=== PATIENT | female | born 1990 | race Hispanic/Latino ===

== ENCOUNTER 2024-05-20 16:58 | Emergency (ER) | payer SELFPAY ==
--- OUTSIDE RECORDS SUMMARY | 2024-05-20 17:02 | XMS REPORT | Continuity of Care Document ---
Author Name Unknown Address [address] [facility]. [address] [place] [address] [facility] Address [address] [facility] [place] [address] Care Team Providers Care Auctioneer Art Name Role Phone Helena Bailey Primary Care Physician LIANE GRAJEDA Attending Clinician Unavail able Taras Liane AGRAWAL Attending Clinician + Doctor Unassigned, Webber Attending Clinician U CHER Yates Attending Clinician Unavaildonnie burris [facility] Attending Clinician Unavailable Cher Milian CNM Attending Clinician [phone] Nino Jimenez MD Attending Clinician [phone] BERONICA COTTER Attending Clinician Unavailable Pgy1 Attending Clinician Unavailable Beronica Cotter MD Attending Clinician [phone] SAMMIE MANZANO Attending Clinician UnavailSAMMIE Bruce Attending Clinician Unavailregino e Pgy3 Attending Clinician Unavailable Gyn1, Lvc-Vwsev-6xi Yr Res Attending Clinician U ALFIE Mendoza Attending Clinician Unavailable Alfie Soliman MD Attending Clinician [phone] Andreina Liu Attending Clinician UnaSammie Gleason Attending Clinician [phone] SAMMIE MOLINA Attending Clinician UnavailANDREINA Person Attending Clinician UnavailKELLY Gonzales Attending Clinician Unavailable ALFIE SOLIMAN Admitting Clinician Unavailable Alfie Soliman MD Admitting Clinician Payers Payer Name Policy Type Policy Number Effective Date Expirati on Date Source [id number] 2019 00:00:00 Problems Condition Name Condition Details Condition Category Status Onset Date Resolution Date Last Treatment Date Treating Clinician Comments Source Well woman exam Well woman exam Disease Active 2022-06 0-11 00:00: 00 [facility] Pelvic inflammato ry disease Pelvic inflammato ry disease Disease Active 3-25 00:00: 00 [facility] Other general counseling and advice for contracept celine management Other general counseling and advice for contracept celine management Disease Active 2021-06 0-11 00:00: 00 [facility] Pain pelvic Pain pelvic Disease Active 2021-06 0-11 00:00: 00 [facility] Breakthrou gh bleeding with IUD Breakthrou gh bleeding with IUD Disease Active 8-31 00:00: 00 [facility] IUD (intrauter ine device) in place IUD (intrauter ine device) in place Disease Active 6-04 00:00: 00 [facility] Over weight Over weight Disease Active 6-04 00:00: 00 [facility] IUD (intrauter ine device) in place IUD (intrauter ine device) in place Disease Active 6-04 00:00: 00 [facility] Class 1 obesity with body mass index (BMI) of 30.0 to 30.9 in adult, unspecifie d obesity type, unspecifie d whether serious comorbidit y present Class 1 obesity with body mass index (BMI) of 30.0 to 30.9 in adult, unspecifie d obesity type, unspecifie d whether serious comorbidit y present Disease Active 6-04 00:00: 00 [facility] BMI 31.0-31.9, adult BMI 31.0-31.9, adult Disease Active 11-11 00:00: 00 [facility] 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 ICD10 Diagnosis Term Bridge Builder Utility [facility] Allergies, Adverse Reactions, Alerts Allergy Name Allergy Type Status Severity Reaction(s) Onset Date Inactive Date Treating Clinician Comments Source [place] - Intraven ous Propensi ty to adverse reaction to drug Active 12-07 00:00: 00 Cain Snow NO KNOWN ALLERGIE S Drug Class Active [facility] Social History Social Habit Start Date Stop Date Quantity Comments Source History SDOH Social Connections Get Together [facility] History SDOH Social Connections Voodoo [facility] History SDOH Social Connections Membership [facility] History SDOH Social Connections Meetings [facility] intake 2023-03-20 00:00:00 2023-03-20 00:00:00 Current drinker of alcohol (finding) [facility] Exposure to SARS-CoV-2 (event) 2022-10-28 00:00:00 2022-11-07 13:49:00 Not sure [facility] History SDOH Social Connections Phone 2022-09-03 00:00:00 2022-09-03 00:00:00 5 [facility] History SDOH Social Connections Living 2022-09-03 00:00:00 2022-09-03 00:00:00 7 [facility] History SDOH Physical Activity DPW 2022-09-03 00:00:00 2022-09-03 00:00:00 7 [facility] History SDOH Physical Activity MPS 2022-09-03 00:00:00 2022-09-03 00:00:00 2 [facility] History SDOH Financial 2022-09-03 00:00:00 2022-09-03 00:00:00 3 [facility] History SDOH Food Worry 2022-09-03 00:00:00 2022-09-03 00:00:00 1 [facility] History SDOH Food Scarcity 2022-09-03 00:00:00 2022-09-03 00:00:00 1 [facility] History SDOH Transport Med 2022-09-03 00:00:00 2022-09-03 00:00:00 2 [facility] History SDOH Transport Non-Med 2022-09-03 00:00:00 2022-09-03 00:00:00 2 [facility] History SDOH Housing Unable to Pay 2022-09-03 00:00:00 2022-09-03 00:00:00 2 [facility] History SDOH Housing Places Lived 2022-09-03 00:00:00 2022-09-03 00:00:00 1 [facility] History SDOH Housing Homeless Last Year 2022-09-03 00:00:00 2022-09-03 00:00:00 2 [facility] History SDOH Alcohol Std Drinks 2022-09-03 00:00:00 2022-09-03 00:00:00 3 [facility] History SDOH Alcohol Binge 2022-09-03 00:00:00 2022-09-03 00:00:00 4 [facility] Alcohol Comment 2022-03-20 00:00:00 2022-03-20 00:00:00 occasionally [facility] Tobacco use and exposure 2022-03-20 00:00:00 2022-03-20 00:00:00 Smokeless tobacco non-user [facility] History of Social function 2022-03-20 00:00:00 2022-03-20 00:00:00 [facility] History SDOH Alcohol Frequency 2019-11-12 00:00:00 2019-11-12 00:00:00 2 [facility] Sex Assigned At 1990 00:00:00 1990 00:00:00 [facility] Smoking Status Start Date Stop Date Source Never smoked tobacco [facility] Medications Ordered Medication Name Filled Medication Name Start Date Stop Date Current Medication? Ordering Clinician Indication Dosage Frequency Signature (SIG) Comments Components Source Tylenol Extra Strength 500 mg tablet 2023-06 2-05 00:00: 00 Yes 12mg Cain Snow clindamycin HCl 150 mg capsule 2023-06 2-05 00:00: 00 Yes 1mg Cain Snow nitrofurant oin monohydrate /macrocryst als 100 mg capsule 2023-06 0-15 00:00: 00 Yes 1mg Cain Snow TAKE 1 CAPSULE TWICE DAILY. 2-06 00:00: 00 09-09 00:00 :00 No 100 Cain Snow TAKE 1 CAPSULE TWICE DAILY. 2022-06 1-20 00:00: 00 09-09 00:00 :00 No 100 Cain Snow APPLY SPARINGLY TO AFFECTED AREA(S) TWICE DAILY 2022-06 0-12 00:00: 00 09-09 00:00 :00 No 1 Cain Snow TAKE 1 TABLET DAILY. 2022-06 0-12 00:00: 00 09-09 00:00 :00 No 10 Cain Snow TAKE 1 TABLET AT BEDTIME. 2022-06 012 00:00: 00 09-09 00:00 :00 No 10 Cain Snow APPLY CREAM TOPICALLY TO AFFECTED AREA THREE TIMES DAILY 2022-06 0-11 00:00: 00 Yes Cain Snow triamcinolo ne 0.5 % cream 2022-06 011 00:00: 00 Yes [id number] Apply to area(s) 3 (three) times daily. [facility] TAKE 1 CAPSULE TWICE DAILY. 31 00:00: 00 09-09 00:00 :00 No 100 Cain Snow TAKE 1 CAPSULE TWICE DAILY. 01-03 00:00: 00 09-09 00:00 :00 No 100 Cain Snow TAKE 1-2 CAPSULES ONCE A DAY PRN ANXIETY AND SLEEP 7- 00:00: 00 09-09 00:00 :00 No 25 Cain Snow TAKE 1 CAPSULE TWICE DAILY. 6-25 00:00: 00 09-09 00:00 :00 No 100 Cain Snow TAKE 1 TABLET DAILY. 6-13 00:00: 00 09-09 00:00 :00 No 1 Cain Snow TAKE 1 TABLET DAILY. 11-15 00:00: 00 09-09 00:00 :00 No 1 Cain Snow TAKE 1 TABLET TWICE DAILY UNTIL GONE. 11-15 00:00: 00 09-09 00:00 :00 No 500 Cain Snow TAKE 1 CAPSULE TWICE DAILY. 11-15 00:00: 00 09-09 00:00 :00 No 100 Cain Snow TAKE 1 TABLET DAILY. 11-15 00:00: 00 09-09 00:00 :00 No 500 Cain Snow INHALE 2 PUFFS TWICE DAILY. 11-15 00:00: 00 09-09 00:00 :00 No 110 Cain Snow TAKE 1 TABLET BY MOUTH ONCE DAILY FOR 7 DAYS 10-21 00:00: 00 Yes Cain Snow levoFLOXaci n 500 mg tablet 10-21 00:00: 00 10-29 04:59 :00 No [id number] 500mg Take 1 tablet by mouth every 24 (twenty-fo ur) hours for 7 days. [facility] levonorgest reL (LILETTA) IUD 1 Device 10-11 21:15: 00 10-11 20:00 :00 No [id number] 1{devic e} [facility] doxycycline hyclate 100 mg tablet 10-11 00:00: 00 03-20 00:00 :00 No [id number] 100mg Take 1 tablet by mouth in the morning and 1 tablet in the evening. [facility] doxycycline hyclate (Vibramycin ) capsule 100 mg 09-03 18:00: 00 09-15 17:59 :00 No 100mg 100 mg, Oral, Q12H ABX, 24 doses, First dose on 09/03/22 at 1300, Last dose on 09/15/22 at 0100, DOUGLAS
Re ason for Anti-Infec tive: Empiric Therapy for Suspected Infection< br>Empiric Therapy Site: Pelvic
Duration of therapy: 5 days [facility] metroNIDAZO LE (FLAGYL) tablet 500 mg 09-03 15:45: 00 09-15 15:44 :00 No 500mg 500 mg, Oral, Q12H ABX, 24 doses, First dose on Sat09/03/22 at 1045, Last dose on Sat09/14/22 at 2245, Routine
Reason for Anti-Infec tive: Empiric Therapy for Suspected Infection< br>Empiric Therapy Site: Pelvic
Duration of therapy: 5 days [facility] norgestimat e-ethinyl estradioL (VYLIBRA) 0.25-35 mg-mcg per tablet 1 tablet 09-03 14:00: 00 Yes 1{tbl} 1 tablet, Oral, DAILY, First dose on Sat09/03/22 at 0900, Until Discontinu ed, Routine
member services coordinator approving Restricted medication : ALFIE SOLIMAN [facility] ibuprofen 600 mg tablet 09-03 00:00: 00 03-20 00:00 :00 No [id number] 600mg Take 1 tablet by mouth every 6 (six) hours as needed for Pain (scale 1-3) for up to 30 doses. [facility] norgestimat e-ethinyl estradioL 0.25-35 mg-mcg per tablet 09-03 00:00: 00 03-20 00:00 :00 No [id number] 1{tbl} Take 1 tablet by mouth in the morning. [facility] doxycycline hyclate 100 mg capsule 09-03 00:00: 00 09-16 04:59 :00 No [id number] 100mg Take 1 capsule by mouth every 12 (twelve) hours for 12 days. [facility] metroNIDAZO LE 500 mg tablet 09-03 00:00: 00 09-16 04:59 :00 No [id number] 500mg Take 1 tablet by mouth every 12 (twelve) hours for 12 days. [facility] simethicone (GAS RELIEF (SIMETHICON E)) chewable tablet 160 mg 09-02 14:00: 00 Yes 160mg 160 mg, Oral, PC+HS, First dose on 09/02/22 at 0900, Until Discontinu ed, Routine [facility] docusate (COLACE) capsule 100 mg 09-02 13:00: 00 Yes 100mg 100 mg, Oral, Q12H, First dose on 09/02/22 at 0800, Until Discontinu ed, Routine [facility] metroNIDAZO LE in NaCl (iso-os) (FLAGYL I.V.) RTU IV infusion 500 mg 09-02 03:45: 00 09-03 11:36 :30 No 500mg 500 mg, IV Infusion, Q12H ABX, 14 doses, First dose on 09/01/22 at 2245, Last dose on 09/08/22 at 1045, Administer over 60 Minutes, 100 mL
Reas on for Anti-Infec tive: Documented Infection< br>Documen andree Infection Site: Pelvic
Duration of Therapy: 7 days [facility] doxycycline (VIBRAMYCIN ) 100 mg in NaCl 0.9% (NS) 100 mL MINI-BAG 09-02 03:45: 00 09-03 11:36 :30 No 100mg 100 mg, IV Piggyback, Q12H ABX, 14 doses, First dose on 09/01/22 at 2245, Last dose on 09/08/22 at 1045, Administer over 60 Minutes, 100 mL
Reas on for Anti-Infec tive: Documented Infection< br>Documen andree Infection Site: Pelvic
Duration of Therapy: 7 days [facility] cefOXitin (MEFOXIN) 2 g in NaCl 0.9% (NS) 100 mL MINI-BAG 09-02 03:45: 00 09-03 11:36 :30 No 2g 2 g, IV Piggyback, Q6H ABX, 12 doses, First dose on 09/01/22 at 2245, Last dose on 09/04/22 at 1645, Administer over 30 Minutes, 100 mL
Reas on for Anti-Infec tive: Documented Infection& lt;br>Docu mented Infection Site: Pelvic
Duration of Therapy: Other (see Comments) [facility] ibuprofen (IBU) tablet 600 mg 09-02 02:28: 54 Yes 600mg 600 mg, Oral, Q6HPRN, Starting on 09/01/22 at 2127, Until Discontinu ed, Routine, Pain (scale 1-3) [facility] ondansetron (ZOFRAN (PF)) injection 4 mg 09-02 02:28: 39 Yes 4mg 4 mg, Slow IV Push, Q4HPRN, Starting on 09/01/22 at 2127, Until Discontinu ed, Routine, Nausea and Vomiting (N/V) [facility] Dose Unknown 2021-06 117 00:00: 00 Yes Cain Snow No known medications 2021-06 011 08:45: 55 No No known medication s [facility] TAKE 1 TABLET TWICE DAILY. 12-19 00:00: 00 Yes [id number] Cain Snow Dose Unknown 7-04 00:00: 00 Yes Cain Snow Dose Unknown 7- 00:00: 00 Yes Cain Snow Dose Unknown 6-30 00:00: 00 Yes Cain Snow Dose Unknown 4-21 00:00: 00 Yes Cain Snow Dose Unknown 4-02 00:00: 00 Yes Cain Snow Dose Unknown 4-01 00:00: 00 Yes Cain Snow Macrobid 100 mg capsule - 00:00: 00 Yes 1mg Cain Snow Dose Unknown 3-28 00:00: 00 Yes Cain Snow No known medications 8-31 08:50: 15 No No known medication s [facility] cefdinir 300 mg capsule - 00:00: 00 Yes 1mg Cain Snow Augmentin 875 mg-125 mg tablet 7- 00:00: 00 Yes 1mg Cain Snow amoxicillin 500 mg tablet 6-05 00:00: 00 Yes 1mg Cain Snow No known medications No [facility] No known medications No [facility] Immunizations Ordered Immunization Name Filled Immunization Name Date Status Comments Source SARS-COV-2 COVID-19 PFIZER VACCINE 2020-10-08 00:00:00 Completed [facility] SARS-COV-2 COVID-19 PFIZER VACCINE 2020-10-08 00:00:00 Completed [facility] SARS-COV-2 COVID-19 PFIZER VACCINE 2020-10-08 00:00:00 Completed [facility] SARS-COV-2 COVID-19 PFIZER VACCINE 2020-10-08 00:00:00 Completed [facility] SARS-COV-2 COVID-19 PFIZER VACCINE 2020-10-08 00:00:00 Completed [facility] SARS-COV-2 COVID-19 PFIZER VACCINE 2020-10-08 00:00:00 Completed [facility] SARS-COV-2 COVID-19 PFIZER VACCINE 2020-10-08 00:00:00 Completed [facility] SARS-COV-2 COVID-19 PFIZER VACCINE 2020-10-08 00:00:00 Completed [facility] SARS-COV-2 COVID-19 PFIZER VACCINE 2020-10-08 00:00:00 Completed [facility] SARS-COV-2 COVID-19 PFIZER VACCINE 2020-10-08 00:00:00 Completed [facility] SARS-COV-2 COVID-19 PFIZER VACCINE 2020-10-08 00:00:00 Completed [facility] SARS-COV-2 COVID-19 PFIZER VACCINE 2020-10-08 00:00:00 Completed [facility] SARS-COV-2 COVID-19 PFIZER VACCINE 2020-10-08 00:00:00 Completed [facility] SARS-COV-2 COVID-19 PFIZER VACCINE 2020-10-08 00:00:00 Completed [facility] SARS-COV-2 COVID-19 PFIZER VACCINE 2020-09-17 00:00:00 Completed [facility] SARS-COV-2 COVID-19 PFIZER VACCINE 2020-09-17 00:00:00 Completed [facility] SARS-COV-2 COVID-19 PFIZER VACCINE 2020-09-17 00:00:00 Completed [facility] SARS-COV-2 COVID-19 PFIZER VACCINE 2020-09-17 00:00:00 Completed [facility] SARS-COV-2 COVID-19 PFIZER VACCINE 2020-09-17 00:00:00 Completed [facility] SARS-COV-2 COVID-19 PFIZER VACCINE 2020-09-17 00:00:00 Completed [facility] SARS-COV-2 COVID-19 PFIZER VACCINE 2020-09-17 00:00:00 Completed [facility] SARS-COV-2 COVID-19 PFIZER VACCINE 2020-09-17 00:00:00 Completed [facility] SARS-COV-2 COVID-19 PFIZER VACCINE 2020-09-17 00:00:00 Completed [facility] SARS-COV-2 COVID-19 PFIZER VACCINE 2020-09-17 00:00:00 Completed [facility] SARS-COV-2 COVID-19 PFIZER VACCINE 2020-09-17 00:00:00 Completed [facility] SARS-COV-2 COVID-19 PFIZER VACCINE 2020-09-17 00:00:00 Completed [facility] SARS-COV-2 COVID-19 PFIZER VACCINE 2020-09-17 00:00:00 Completed [facility] SARS-COV-2 COVID-19 PFIZER VACCINE 2020-09-17 00:00:00 Completed [facility] SARS-COV-2 COVID-19 PFIZER VACCINE Unknown Completed [facility] SARS-COV-2 COVID-19 PFIZER VACCINE Unknown Completed [facility] Vital Signs Vital Name Observation Time Observation Value Comments S ource Systolic blood pressure 2023-03-20 13:29:00 114 mm[Hg] [facility] Diastolic blood pressure 2023-03-20 13:29:00 65 mm[Hg] [facility] Heart rate 2023-03-20 13:29:00 72 /min [facility] Body temperature 2023-03-20 13:29:00 36.28 Lexi [facility] Respiratory rate 2023-03-20 13:29:00 18 /min [facility] Body height 2023-03-20 13:29:00 157.5 cm [facility] Body weight 2023-03-20 13:29:00 [facility]31 [facility] 2023-03-20 13:29:00 27.95 kg/m2 [facility] Systolic blood pressure 2022-10-11 19:33:00 116 mm[Hg] [facility] Diastolic blood pressure 2022-10-11 19:33:00 72 mm[Hg] [facility] Heart rate 2022-10-11 19:33:00 60 /min [facility] Body temperature 2022-10-11 19:33:00 36.33 Lexi [facility] Respiratory rate 2022-10-11 19:33:00 16 /min [facility] Body height 2022-10-11 19:33:00 157.5 cm [facility] Body weight 2022-10-11 19:33:00 64.501 kg [facility] acute hospital BMI 2022-10-11 19:33:00 26.01 kg/m2 [facility] Systolic blood pressure 2022-09-13 18:38:00 132 mm[Hg] [facility] Diastolic blood pressure 2022-09-13 18:38:00 79 mm[Hg] [facility] Heart rate 2022-09-13 18:38:00 51 /min [facility] Body temperature 2022-09-13 18:38:00 36.56 Lexi [facility] Body height 2022-09-13 18:38:00 157.5 cm [facility] Body weight 2022-09-13 18:38:00 64.411 kg [facility] BMI 2022-09-13 18:38:00 25.97 kg/m2 [facility] Systolic blood pressure 2022-09-03 13:00:00 104 mm[Hg] [facility] Diastolic blood pressure 2022-09-03 13:00:00 68 mm[Hg] [facility] Heart rate 2022-09-03 13:00:00 67 /min [facility] Body temperature 2022-09-03 13:00:00 36.94 Lexi [facility] Respiratory rate 2022-09-03 13:00:00 16 /min [facility] Oxygen saturation in Arterial blood by Pulse oximetry 2022-09-03 13:00:00 98 /min [facility] Body height 2022-09-02 07:00:00 157.5 cm [facility] Body weight 2022-09-02 02:00:00 63.504 kg General acute hospital BMI 2022-09-02 02:00:00 25.61 kg/m2 [facility] Systolic blood pressure 2022-03-20 13:33:00 129 mm[Hg] [facility] Diastolic blood pressure 2022-03-20 13:33:00 81 mm[Hg] [facility] Heart rate 2022-03-20 13:33:00 58 /min [facility] Body temperature 2022-03-20 13:33:00 36.78 Lexi [facility] Respiratory rate 2022-03-20 13:33:00 16 /min [facility] Body height 2022-03-20 13:33:00 157.5 cm [facility] Body weight 2022-03-20 13:33:00 63.73 kg [facility] BMI 2022-03-20 13:33:00 25.70 kg/m2 [facility] Systolic blood pressure 2021-02-07 13:29:00 137 mm[Hg] [facility] Diastolic blood pressure 2021-02-07 13:29:00 79 mm[Hg] [facility] Heart rate 2021-02-07 13:29:00 61 /min [facility] Body temperature 2021-02-07 13:29:00 36.72 Lexi [facility] Respiratory rate 2021-02-07 13:29:00 18 /min [facility] Body height 2021-02-07 13:29:00 157.5 cm [facility] Body weight 2021-02-07 13:29:00 80.74 kg [facility] BMI 2021-02-07 13:29:00 32.56 kg/m2 [facility] acute hospital BP Systolic 2024-05-14 17:01:00 118 mm[Hg] Step [facility] BP Diastolic 2024-05-14 17:01:00 77 mm[Hg] Randy phen [facility] Weight Measured 2024-05-14 17:01:00 180.20 pounds Cain F Edy Height Measured 2024-05-14 17:01:00 62.00 inches Cain F [facility]y Body Temperature 2024-05-14 17:01:00 98.30 degrees Cain F Edy Heart Rate 2024-05-14 17:01:00 94.00 /min Lucy en [facility] Respiratory Rate 2024-05-14 17:01:00 Cain F Edy BP Systolic 2024-03-30 11:21:00 126 mm[Hg] Step [facility] BP Diastolic 2024-03-30 11:21:00 82 mm[Hg] Randy phen [facility] Weight Measured 2024-03-30 11:21:00 182.40 pounds Cain F Edy Height Measured 2024-03-30 11:21:00 62.00 inches Cain F Edy Body Temperature 2024-03-30 11:21:00 97.80 degrees Cain F Edy Heart Rate 2024-03-30 11:21:00 71.00 /min Lucy en [facility] Respiratory Rate 2024-03-30 11:21:00 18.00 /min Cain F Edy BP Systolic 2024-03-24 13:21:00 149 mm[Hg] Step [facility] BP Diastolic 2024-03-24 13:21:00 93 mm[Hg] Randy phen [facility] Weight Measured 2024-03-24 13:21:00 183.40 pounds Cain F Edy Height Measured 2024-03-24 13:21:00 62.00 inches Cain F Edy Body Temperature 2024-03-24 13:21:00 98.20 degrees Cain F Edy Heart Rate 2024-03-24 13:21:00 64.00 /min Lucy en [facility] Respiratory Rate 2024-03-24 13:21:00 18.00 /min Cain F Edy BP Systolic 2023-07-16 08:27:00 108 mm[Hg] Step [facility] BP Diastolic 2023-07-16 08:27:00 68 mm[Hg] Randy phen [facility] Weight Measured 2023-07-16 08:27:00 159.60 pounds Cain F Edy Height Measured 2023-07-16 08:27:00 62.00 inches Cain F Edy Body Temperature 2023-07-16 08:27:00 97.40 degrees Cain F Edy Heart Rate 2023-07-16 08:27:00 68.00 /min Lucy en [facility] Respiratory Rate 2023-07-16 08:27:00 18.00 /min Cain F Edy BP Systolic 2023-04-29 14:03:00 124 mm[Hg] Step [facility] BP Diastolic 2023-04-29 14:03:00 80 mm[Hg] Randy phen [facility] Weight Measured 2023-04-29 14:03:00 151.20 pounds Cain F Edy Height Measured 2023-04-29 14:03:00 62.00 inches Cain F Edy Body Temperature 2023-04-29 14:03:00 98.30 degrees Cain F Edy Heart Rate 2023-04-29 14:03:00 93.00 /min Lucy en [facility] Respiratory Rate 2023-04-29 14:03:00 Cain F Edy BP Systolic 2023-03-21 09:15:00 108 mm[Hg] Step [facility] BP Diastolic 2023-03-21 09:15:00 69 mm[Hg] Randy phen [facility]y Weight Measured 2023-03-21 09:15:00 152.20 pounds Cain F Edy Height Measured 2023-03-21 09:15:00 62.00 inches Cain F Edy Body Temperature 2023-03-21 09:15:00 97.50 degrees Cain F Edy Heart Rate 2023-03-21 09:15:00 76.00 /min Lucy en [facility] Respiratory Rate 2023-03-21 09:15:00 Cain F Edy BP Systolic 2023-01-03 14:36:00 126 mm[Hg] Step [facility] BP Diastolic 2023-01-03 14:36:00 77 mm[Hg] Randy phen F [facility]y Weight Measured 2023-01-03 14:36:00 150.20 pounds Cain F Edy Height Measured 2023-01-03 14:36:00 62.00 inches Cain F Edy Body Temperature 2023-01-03 14:36:00 97.50 degrees Cain F Edy Heart Rate 2023-01-03 14:36:00 65.00 /min Lucy en F [facility]y Respiratory Rate 2023-01-03 14:36:00 25.00 /min Cain F Edy BP Systolic 2022-11-27 13:02:00 104 mm[Hg] Step hen [facility] BP Diastolic 2022-11-27 13:02:00 66 mm[Hg] Randy phen F [facility]y Weight Measured 2022-11-27 13:02:00 143.40 pounds Cain F Edy Height Measured 2022-11-27 13:02:00 62.00 inches Cain F Edy Body Temperature 2022-11-27 13:02:00 98.20 degrees Cain F Edy Heart Rate 2022-11-27 13:02:00 58.00 /min Lucy en F Edy Respiratory Rate 2022-11-27 13:02:00 Cain F Edy BP Systolic 2022-11-15 14:35:00 116 mm[Hg] Step hen [facility] BP Diastolic 2022-11-15 14:35:00 75 mm[Hg] Randy phen F [facility]y Weight Measured 2022-11-15 14:35:00 145.60 pounds Cain F Edy Height Measured 2022-11-15 14:35:00 62.00 inches Cain F Edy Body Temperature 2022-11-15 14:35:00 98.00 degrees Cain F Edy Heart Rate 2022-11-15 14:35:00 56.00 /min Lucy en F Edy Respiratory Rate 2022-11-15 14:35:00 Cain F Edy BP Systolic 2022-11-12 13:06:00 129 mm[Hg] Step hen F Edy BP Diastolic 2022-11-12 13:06:00 81 mm[Hg] Randy phen F Edy Weight Measured 2022-11-12 13:06:00 146.80 pounds Cain F Edy Height Measured 2022-11-12 13:06:00 62.00 inches Cain F Edy Body Temperature 2022-11-12 13:06:00 97.80 degrees Cain F Edy Heart Rate 2022-11-12 13:06:00 52.00 /min Lucy en F Edy Respiratory Rate 2022-11-12 13:06:00 Cain F Edy BP Systolic 2022-10-30 14:16:00 118 mm[Hg] Step hen F Edy BP Diastolic 2022-10-30 14:16:00 74 mm[Hg] Randy phen F Edy Weight Measured 2022-10-30 14:16:00 145.00 pounds Cain F Edy Height Measured 2022-10-30 14:16:00 62.00 inches Cain F Edy Body Temperature 2022-10-30 14:16:00 98.50 degrees Cain F Edy Heart Rate 2022-10-30 14:16:00 61.00 /min Lucy en F Edy Respiratory Rate 2022-10-30 14:16:00 Cain F Edy BP Systolic 2022-04-26 14:40:00 117 mm[Hg] Step hen F Edy BP Diastolic 2022-04-26 14:40:00 78 mm[Hg] Randy phen F Edy Weight Measured 2022-04-26 14:40:00 138.00 pounds Cain F Edy Height Measured 2022-04-26 14:40:00 62.00 inches Cain F Edy Body Temperature 2022-04-26 14:40:00 97.90 degrees Cain F Edy Heart Rate 2022-04-26 14:40:00 63.00 /min Lucy en F Edy Respiratory Rate 2022-04-26 14:40:00 Cain Mak Snow Procedures Procedure Date / Time Performed Performing Clinician Source ASSIGNMENT OF BENEFITS 2023-03-20 13:09:36 Docto r Unassigned, Webber [facility] POCT TEST 2022-10-11 20:14:00 Beronica Cotter [facility] DISCLOSURE AND CONSENT, MEDICAL AND SURGICAL PROCEDURES 2022-10-11 05:01:00 Doctor Unassigned, Webber [facility] PATIENT FINANCIAL POLICY 2022-09-13 18:25:57 Doctor Unassigned, Webber [facility] COMP. METABOLIC PANEL (37799) 2022-09-03 13:48:00 Astrid Moctezuma [facility] CBC WITH DIFF 2022-09-03 13:48[facility] 2022-09-03 13:48:00 Alfie Soliman [facility] CBC WITH DIFF 2022-09-02 03:52:00 SorAngela matt [facility] URINALYSIS 2022-09-02 02:45:00 [facility] 2022-09-02 02:45:00 Angela Bolaños [facility] GC & CHLAMYDIA AMPLIFIED ASSAY 2022-09-02 02:11:00 SorAngela matt [facility] GC & CHLAMYDIA AMPLIFIED ASSAY 2022-03-20 14:21:00 Liane Grajeda [facility] TRICHOMONAS AMPLIFIED ASSAY 2022-03-20 14:21:00 Liane Grajeda [facility] PAP SMEAR-LIQUID BASED-CP 2022-03-20 14:21:00 Liane Grajeda [facility] HIV 1/2 AG-AB WITH REFLEX 2022-03-20 14:19:00 Liane Grajeda [facility] GALV ONLY - SYPHILIS IGG/IGM 2022-03-20 14:19:00 Liane Grajeda [facility] ASSIGNMENT OF BENEFITS 2022-03-20 13:06:49 Docto r Unassigned, Webber [facility] POCT TEST 2021-02-07 13:31:00 Sacha Molina [facility] Encounters Start Date/Time End Date/Time Encounter Type Admission Type Attending [facility] Care Facility Care Department Encounter ID Source 2024-05-14 16:57:32 2024-05-14 16:57:32 Outpatient [facility] [id number] Cain Snow 2024-05-14 00:00:00 2024-05-14 00:00:00 Outpatient Visit [facility] [id number] Cain Snow 2024-03-30 11:14:58 2024-03-30 11:14:58 Outpatient [facility] [id number] Cain Snow 2024-03-30 00:00:00 2024-03-30 00:00:00 Outpatient Visit [facility] [id number] Cain Snow 2024-03-24 00:00:00 2024-03-24 00:00:00 Outpatient Visit [facility] [id number] Cain Snow 2024-03-20 08:15:00 2024-03-20 08:15:00 Outpatient R LIANE GRAJEDA [facility] [id number] [facility] 2024-03-17 13:46:27 2024-03-17 13:46:27 Outpatient [facility] [id number] Cain Snow 2024-01-22 11:44:14 2024-01-22 11:44:14 Outpatient [facility] [id number] Cain Snow 2023-07-16 08:19:57 2023-07-16 08:19:57 Outpatient [facility] [id number] Cain Snow 2023-04-29 13:52:04 2023-04-29 13:52:04 Outpatient [facility] [id number] Cain Snow 2023-03-21 09:15:05 2023-03-21 09:15:05 Outpatient [facility] [id number] Cain Snow 2023-03-20 08:15:00 2023-03-20 09:30:36 Outpatient R LIANE GRAJEDA [facility] [id number] [facility] 2023-03-20 08:15:00 2023-03-20 09:30:36 Office Visit Liane Grajeda [facility] RN WOUND CARE [facility] 1.2.840.114 350.1.13.10 4.2.7.2.686 [id number] [facility] 2023-03-20 00:00:00 2023-03-20 00:00:00 Orders Only Doctor Unassigned, Webber [facility] 1.0.114 350.1.13.10 4.2.7.2.686 [id number] [facility] 2023-01-03 14:35:42 2023-01-03 14:35:42 Outpatient [facility] [id number] Cain Corado Milton 2022-12-12 14:50:40 2022-12-12 14:50:40 Outpatient [facility] 05 Cain Corado [place] 2022-11-27 13:00:29 2022-11-27 13:00:29 Outpatient [facility] 20 Cain Corado [place] 2022-11-15 14:32:44 2022-11-15 14:32:44 Outpatient [facility] 08 Cain Corado [place] 2022-11-12 13:05:41 2022-11-12 13:05:41 Outpatient [facility] 05 Cain Corado [place] 2022-11-07 14:15:00 2022-11-07 14:15:00 Outpatient CHER BALTAZAR [facility] [id number] [facility] 2022-11-07 14:15:00 2022-11-07 14:15:00 Manager Latin Visit Lab, Ang-Rmchp Cher Milian [facility] RN WOUND CARE [facility] 1.0.114 350.1.13.10 4.2.7.2.686 [id number] [facility] 2022-10-30 14:14:02 2022-10-30 14:14:02 Outpatient [facility] [id number] Cain [facility] 2022-10-21 00:00:00 2022-10-21 00:00:00 Patient Secure Msg JimenezNino [facility] 1..114 350.1.13.10 4.2.7.2.686 [id number] [facility] 2022-10-11 14:30:00 2022-10-11 15:54:23 Outpatient R BERONICA COTTER [facility] [id number] [facility] 2022-10-11 14:30:00 2022-10-11 15:54:23 Office Visit Pgy1 Beronica Cotter [facility] 1.2840.114 350.1.13.10 4.2.7.2.686 [id number] [facility] 2022-10-11 00:00:00 2022-10-11 00:00:00 Orders Only Doctor Unassigned, Webber [facility] 1.20.114 350.1.13.10 4.2.7.2.686 [id number] [facility] 2022-09-13 13:00:00 2022-09-13 13:53:31 Outpatient R SAMMIE MANZANO EMILY [facility] [id number] [facility] 2022-09-13 13:00:00 2022-09-13 13:53:31 Office Visit Pgy3 Sammie Manzano [facility] 1.20.114 350.1.13.10 4.2.7.2.686 [id number] [facility] 2022-09-13 00:00:00 2022-09-13 00:00:00 Orders Only Doctor Unassigned, Webber [facility] 1.20.114 350.1.13.10 4.2.7.2.686 [id number] [facility] 2022-09-08 00:00:00 2022-09-08 00:00:00 Telephone Gyn1, [facility]1 [facility] 1.2840.114 350.1.13.10 4.2.7.2.686 [id number] [facility] 2022-09-01 18:37:00 2022-09-03 18:10:00 Inpatient X ALFIE SOLIMAN [facility] 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 [id number] [facility] 2022-09-01 18:37:00 2022-09-03 18:10:00 Hospital Encounter Alfie Soliman L [facility] 1.114 350.1.13.10 4.2.7.2.686 [id number] [facility] 2022-08-26 00:00:00 2022-08-26 00:00:00 Telephone Andreina Mann [facility] RN WOUND CARE [facility] 1..114 350.1.13.10 4.2.7.2.686 [id number] [facility] 2022-04-26 14:27:40 2022-04-26 14:27:40 Outpatient [facility] [id number] [facility] Cain Snow 2022-04-26 00:00:00 2022-04-26 00:00:00 Telephone Liane Grajeda [facility] RN WOUND CARE [facility] 1..114 350.1.13.10 4.2.7.2.686 [id number] [facility] 2022-03-20 08:15:00 2022-03-20 09:19:33 Outpatient R LIANE GRAJEDA [facility] [id number] [facility] 2022-03-20 08:15:00 2022-03-20 09:19:33 Office Visit Liane Grajeda [facility] RN WOUND CARE [facility] 1..114 350.1.13.10 4.2.7.2.686 [id number] [facility] 2022-03-20 00:00:00 2022-03-20 00:00:00 Orders Only Doctor Unassigned, Webber [facility] 1..114 350.1.13.10 4.2.7.2.686 [id number] [facility] 2021-02-09 00:00:00 2021-02-09 00:00:00 Telephone Sammie Molina Fredy [facility] RN WOUND CARE [facility] 1.2.840.114 350.1.13.10 4.2.7.2.686 [id number] [facility] 2021-02-07 08:18:31 2021-02-07 08:50:11 Office Visit Sammie Molina Fredy [facility] RN WOUND CARE [facility] CHILD [facility] 1.2.840.114 350.1.13.10 4.2.7.2.686 [id number] [facility] 2021-02-07 08:30:00 2021-02-07 08:30:00 Outpatient R SAMMIE MOLINA [facility] [id number] [facility] 2020-11-15 15:00:00 2020-11-15 15:00:00 Outpatient R LIANE GRAJEDA [facility] [id number] [facility] 2020-11-15 15:00:00 2020-11-15 15:00:00 Outpatient R LIANE GRAJEDA [facility] [id number] [facility] 2020-11-15 14:30:00 2020-11-15 14:30:00 Outpatient R ANDREINA MANN [facility] [id number] [facility] 2020-10-08 11:20:00 2020-10-08 11:20:00 Outpatient [facility] [id number] [facility] 2020-09-17 11:55:00 2020-09-17 11:55:00 Outpatient R KELLY SPENCE [facility] [id number] [facility] 2020-08-12 13:30:00 2020-08-12 13:30:00 Outpatient R LIANE GRAJEDA [facility] [id number] [facility] 2020-07-01 13:00:00 2020-07-01 13:00:00 Outpatient R [facility] [id number] [facility] 2020-03-22 15:00:00 2020-03-22 15:00:00 Outpatient ANDREINA SCRUGGS [facility] [id number] [facility] 2019-11-26 14:00:00 2019-11-26 14:00:00 Outpatient Rebecca [facility] [id number] [facility] 2019-11-12 14:30:00 2019-11-12 14:30:00 Outpatient ANDREINA SCRUGGS [facility] [id number] [facility] Results Test Description Test Time Test Comments Results Result Co mments Source HCG, [id number] 05:22:57* Test Item Value Reference Range Interpretation Comme nts HCG, QUANTITATIVE (test code = 2506) <5 MIU/ML SEE BELOW EXPECTED VALUES FOR HCG GST.AGE UNITS RANGE GST. AGE UNITS RANGE3 WEEKS MIU/ML 6-71 10 WEEKS MIU/ML 46,509-186,9774 WEEKS MIU/ML 10-750 12 WEEKS MIU/ML 27,832-210,6125 WEEKS MIU/ML 217-7,138 14 WEEKS MIU/ML 13,950-62,5306 WEEKS MIU/ML 158-31,795 15 WEEKS MIU/ML 12,039-70,9717 WEEKS MIU/ML 3,697-163,563 16 WEEKS MIU/ML 9,040-56,4518 WEEKS MIU/ML 32,065-149,571 17 WEEKS MIU/ML 8,175-55,8689 WEEKS MIU/ML 63,803-151,410 18 WEEKS MIU/ML 8,099-58,176MALES and NON- FEMALES . . . . . . . . MIU/ML 1-8IHWZ-OEKBSSNUWA FEMALES . . . . . . . . . . . . MIU/ML <=7 CT/NG, NAAT, [id number] 22:09:05* Test Item Value Reference Range Interpretation Comme nts CHLAMYDIA, NAAT, URINE (test code = 91381) NEGATIVE NEGATIVE Testing is perfo rmed with Tino ELVIE 6800/8800 systems usingreal-time polymerase chain reaction (PCR) method. A negative result does not exclude low level infection, specimensampling error, or collection error. GONORRHEA, NAAT, URINE (test code = 64655) NEGATIVE NEGATIVE Testing is perfo rmed with Tino ELVIE 6800/8800 systems usingreal-time polymerase chain reaction (PCR) method. A negative result does not exclude low level infection, specimensampling error, or collection error. UNLESS OTHERWISE INDICATED, ALL TESTING PERFORMED AT [facility] [address] [place] [address] BURGLAR ALARM OPERATOR: ALEX GOODWIN M.D. [place] NUMBER [id number] [facility] [place]. [id number] 03:55:17* Test Item Value Reference Range Interpretation Comme nts RPR RESULT (test code = 3501) NON-REACTIVE NON-REACTIVE RPR TITER (test code = 3500) NOT INDIC. TITER NOT INDIC. HIV 1/2 4TH GEN, RFLX [id number] 03:51:21* Test Item Value Reference Range Interpretation Comme nts HIV 1/2 4TH GEN, RFLX CONF ( test code = 3514) NON-REACTIVE NON-REACTIVE [id number] 00:00:00* Test Item Value Reference Range Interpretation Comme nts RPR RESULT (test code = 3501) NON-REACTIVE RPR TITER (test code = 3500) NOT INDIC. TITER Cain Corado AustinCT/NG, NAAT, [id number] 00:00:00* Test Item Value Reference Range Interpretation Comme nts CHLAMYDIA, NAAT, URINE (test code = 44156) NEGATIVE GONORRHEA, NAAT, URINE (test code = 10246) NEGATIVE Cain Corado AustinHIV 1/2 4TH GEN, RFLX [id number] 00:00:00* Test Item Value Reference Range Interpretation Comme nts HIV 1/2 4TH GEN, RFLX CONF ( test code = 3514) NON-REACTIVE Cain SnowCULTURE, [id number] 08:58:55SPECIMEN NUMBER: [id number] CULTURE, URINE SPECIMEN NUMBER: [id number] SOURCE: URINE REPORT STATUS: FINAL FINAL REPORT: 03/26/2024 <10,000 CFU/ML UROGENITAL MARYANNE PRESENT NO COMMON PATHOGENS UNLESSOTHERWISE INDICATED, ALL TESTING PERFORMED AT [facility] [address] [place] [place] [address] BURGLAR ALARM OPERATOR: ALEX GOODWIN M.D. CLIA NUMBER [id number] CAP ACCREDITATIONNO. [id number], [id number] 00:00:00* Test Item Value Reference Range Interpretation Comme nts CULTURE, URINE (test code = 19080) SPECIMEN NUMBER: [id number] Cain ReyesLTBILLIE, [id number] 00:00:00* Test Item Value Reference Range Interpretation Comme nts CULTURE, URINE (test code = 11283) SPECIMEN NUMBER: [id number] Cain Marte [id number] 15:32:38SPECIMEN NUMBER: [id number] CULTURE, URINE SPECIMEN NUMBER: [id number] SPECIMEN COMMENT: URINE SOURCE: URINE REPORT STATUS: FINAL FINAL REPORT: 05/01/2023 >100,000 CFU/ML UROGENITAL MARYANNE PRESENT NO COMMON PATHOGENS UNLESS OTHERWISE INDICATED, ALL TESTING PERFORMED AT [facility] [address] [place] [address] BURGLAR ALARM OPERATOR: ALEX GOODWIN M.D. CLIA NUMBER [id number] [place]. [id number], [id number] 00:00:00* Test Item Value Reference Range Interpretation Comme nts CULTURE, URINE (test code = 02551) SPECIMEN NUMBER: [id number] Cain RyeesLTBILLIE, [id number] 00:00:00* Test Item Value Reference Range Interpretation Comme nts CULTURE, URINE (test code = 87547) SPECIMEN NUMBER: [id number] Cain ReyesLTBILLIE, [id number] 00:00:00* Test Item Value Reference Range Interpretation Comme nts CULTURE, URINE (test code = 72091) SPECIMEN NUMBER: [id number] Cain Marte, [id number] 09:22:35SPECIMEN NUMBER: [id number] CULTURE, URINE SPECIMEN NUMBER: [id number] SPECIMEN COMMENT: URINE SOURCE: URINE REPORT STATUS: FINAL FINAL REPORT: 01/05/2023 50-100,000 CFU/ML MIXED MICROBIAL POPULATION PRESENT, NO PREDOMINATING ORGANISMS;PROBABLE CONTAMINANTS.CULTURE, [id number] 00:00:00* Test Item Value Reference Range Interpretation Comme nts CULTURE, URINE (test code = 48059) SPECIMEN NUMBER: [id number] Cain SnowCULTURE, [id number] 00:00:00* Test Item Value Reference Range Interpretation Comme nts CULTURE, URINE (test code = 36440) SPECIMEN NUMBER: [id number] Cain SnowCULTURE, [id number] 00:00:00* Test Item Value Reference Range Interpretation Comme nts CULTURE, URINE (test code = 67867) SPECIMEN NUMBER: [id number] Cain SnowCT/NG, NAAT, [id number] 19:40:41* Test Item Value Reference Range Interpretation Comme nts CHLAMYDIA, NAAT, URINE (test code = 22949) NEGATIVE NEGATIVE Testing is perfo rmed with [employer] EL[employer]IE 6800/8800 systems usingreal-time polymerase chain reaction (PCR) method. A negative result does not exclude low level infection, specimensampling error, or collection error. GONORRHEA, NAAT, URINE (test code = 93648) NEGATIVE NEGATIVE Testing is perfo rmed with [employer] EL[employer]IE 6800/8800 systems usingreal-time polymerase chain reaction (PCR) method. A negative result does not exclude low level infection, specimensampling error, or collection error. UNLESS OTHERWISE INDICATED, ALL TESTING PERFORMED AT [facility] [address] [place] [address] BURGLAR ALARM OPERATOR: ALEX GOODWIN M.D. CLIA NUMBER [id number] [facility] [place]. [id number] HERPES SIMPLEX AB, [id number] 13:14:42* Test Item Value Reference Range Interpretation Comme nts HERPES SIMPLEX AB, IgM (test code = 76583) 1.30 INDEX SEE BELOW H IMPORTANT NOTE: HSV IgM ASSAYS ARE NOT TYPE-SPECIFIC. THE BIOLOGICALIgM RESPONSE WITH PRIMARY INFECTIONS IS VARIABLE AND MAY BEUNDETECTABLE; WITH RECURRENT INFECTIONS IgM MAY OR MAY NOT BEDETECTED. FALSE POSITIVE RESULTS UNRELATED TO HSV INFECTION CAN OCCURWITH HSV IgM ASSAYS. ALL RESULTS SHOULD BE REVIEWED IN CLINICALCONTEXT, AND COMPARISON TO ACUTE OR CONVALESCENT TYPE-SPECIFIC [id number] HSV2 IgG ASSAYS SHOULD BE CONSIDERED. INTERPRETATION UNITS RANGE ----- ----- NEGATIVE INDEX <=0.89 EQUIVOCAL INDEX 0.90-1.09 POSITIVE INDEX >=1.10 HERPES SIMPLEX 1/2 AB, IgG [id number] 04:14:00* Test Item Value Reference Range Interpretation Comme nts HERPES SIMPLEX 1 AB, IgG (test code = 00189) 12.500 INDEX SEE BELOW H INTERPRETATION U NITS RANGE ----- ----- NON-REACTIVE INDEX <1.000 REACTIVE INDEX >=1.000 HERPES SIMPLEX 2 AB, IgG (test code = 39288) 0.081 INDEX SEE BELOW INTERPRETATION U NITS RANGE ----- ----- NON-REACTIVE INDEX <1.000 REACTIVE INDEX >=1.000 HERPES SIMPLEX [id number] 00:00:00* Test Item Value Reference Range Interpretation Comme nts HERPES SIMPLEX AB, IgM (test code = 27573) 1.30 INDEX Cain Corado AustinHERPES SIMPLEX 1/2 [id number] 00:00:00* Test Item Value Reference Range Interpretation Comme nts HERPES SIMPLEX 1 AB, IgG (te st code = 94540) 12.500 INDEX HERPES SIMPLEX 2 AB, IgG (te st code = 72971) 0.081 INDEX Cain Corado AustinCT/NG, TMA, [id number] 00:00:00* Test Item Value Reference Range Interpretation Comme nts CHLAMYDIA, NAAT, URINE (test code = 99714) NEGATIVE GONORRHEA, NAAT, URINE (test code = 02919) NEGATIVE Cain Corado AustinHERPES SIMPLEX [id number] 00:00:00* Test Item Value Reference Range Interpretation Comme nts HERPES SIMPLEX AB, IgM (test code = 44019) 1.30 INDEX Cain Corado AustinHERPES SIMPLEX 1/2 [id number] 00:00:00* Test Item Value Reference Range Interpretation Comme nts HERPES SIMPLEX 1 AB, IgG (te st code = 59735) 12.500 INDEX HERPES SIMPLEX 2 AB, IgG (te st code = 12301) 0.081 INDEX Cain Corado AustinCT/NG, TMA, [id number] 00:00:00* Test Item Value Reference Range Interpretation Comme nts CHLAMYDIA, NAAT, URINE (test code = 96701) NEGATIVE GONORRHEA, NAAT, URINE (test code = 65292) NEGATIVE Cain CoxPES SIMPLEX [id number] 00:00:00* Test Item Value Reference Range Interpretation Comme nts HERPES SIMPLEX AB, IgM (test code = 24417) 1.30 INDEX Cain Corado AustinHERPES SIMPLEX 1/2 [id number] 00:00:00* Test Item Value Reference Range Interpretation Comme nts HERPES SIMPLEX 1 AB, IgG (te st code = 59003) 12.500 INDEX HERPES SIMPLEX 2 AB, IgG (te st code = 85874) 0.081 INDEX Cain Corado AustinCT/NG, TMA, [id number] 00:00:00* Test Item Value Reference Range Interpretation Comme nts CHLAMYDIA, NAAT, URINE (test code = 82632) NEGATIVE GONORRHEA, NAAT, URINE (test code = 22387) NEGATIVE Cain SnowMICROSCOPIC [id number] 06:25:29* Test Item Value Reference Range Interpretation Comme nts WHITE BLOOD CELLS (test code = 1513) 0-5 /HPF 0-5 RED BLOOD CELLS (test code = 1514) 0-2 /HPF 0-2 EPITHELIAL CELLS (test code = 55875) 0-5 /HPF 0-10 BACTERIA (test code = 1515) TRACE NONE SEEN A CASTS, HYALINE (test code = 1517) NONE SEEN NONE-TRACE UNLESS OTHERWISE INDICATED, ALL TESTING PERFORMED AT [facility] [address] [place] [address] BURGLAR ALARM OPERATOR: ALEX GOODWIN M.D. CLIA NUMBER [id number] [facility] [place]. [id number] MICROSCOPIC [id number] 00:00:00* Test Item Value Reference Range Interpretation Comme nts WHITE BLOOD CELLS (test code = 1513) 0-5 /HPF RED BLOOD CELLS (test code = 1514) 0-2 /HPF EPITHELIAL CELLS (test code = 97869) 0-5 /HPF BACTERIA (test code = 1515) TRACE CASTS, HYALINE (test code = 1517) NONE SEEN Cain SnowMICROSCOPIC [id number] 00:00:00* Test Item Value Reference Range Interpretation Comme nts WHITE BLOOD CELLS (test code = 1513) 0-5 /HPF RED BLOOD CELLS (test code = 1514) 0-2 /HPF EPITHELIAL CELLS (test code = 63675) 0-5 /HPF BACTERIA (test code = 1515) TRACE CASTS, HYALINE (test code = 1517) NONE SEEN Cain SnowMICROSCOPIC [id number] 00:00:00* Test Item Value Reference Range Interpretation Comme nts WHITE BLOOD CELLS (test code = 1513) 0-5 /HPF RED BLOOD CELLS (test code = 1514) 0-2 /HPF EPITHELIAL CELLS (test code = 06482) 0-5 /HPF BACTERIA (test code = 1515) TRACE CASTS, HYALINE (test code = 1517) NONE SEEN Cain ReyesLTBILLIE, [id number] 16:47:52SPECIMEN NUMBER: [id number] CULTURE, URINE SPECIMEN NUMBER: [id number] SPECIMEN COMMENT: URINE SOURCE: URINE REPORT STATUS: FINAL FINAL REPORT: 11/30/2022 <10,000 CFU/ML UROGENITAL MARYANNE PRESENT NO COMMON PATHOGENS PRELIMINARY URINE CULTURE: 11/29/2022 INSUFFICIENT GROWTH - FURTHER REPORTS TO FOLLOWCULTBILLIE, [id number] 00:00:00* Test Item Value Reference Range Interpretation Comme nts CULTURE, URINE (test code = 88511) SPECIMEN NUMBER: [id number] Cain ReyesLTBILLIE, [id number] 00:00:00* Test Item Value Reference Range Interpretation Comme nts CULTURE, URINE (test code = 17929) SPECIMEN NUMBER: [id number] Cain SnowCULTBILLIE, [id number] 00:00:00* Test Item Value Reference Range Interpretation Comme nts CULTURE, URINE (test code = 98735) SPECIMEN NUMBER: [id number] Cain SnowMICROSCOPIC [id number] 06:02:03* Test Item Value Reference Range Interpretation Comme nts WHITE BLOOD CELLS (test code = 1513) 0-5 /HPF 0-5 RED BLOOD CELLS (test code = 1514) 3-5 /HPF 0-2 A EPITHELIAL CELLS (test code = 14954) 0-5 /HPF 0-10 BACTERIA (test code = 1515) 1+ NONE SEEN A CASTS, HYALINE (test code = 1517) NONE SEEN NONE-TRACE UNLESS OTHERWISE INDICATED, ALL TESTING PERFORMED AT [facility] [address] [place] [id number] [employer] ALARM OPERATOR: ALEX GOODWIN M.D. [place] NUMBER [id number] [facility] [place]. [id number] MICROSCOPIC [id number] 00:00:00* Test Item Value Reference Range Interpretation Comme nts WHITE BLOOD CELLS (test code = 1513) 0-5 /HPF RED BLOOD CELLS (test code = 1514) 3-5 /HPF EPITHELIAL CELLS (test code = 66004) 0-5 /HPF BACTERIA (test code = 1515) 1+ CASTS, HYALINE (test code = 1517) NONE SEEN Cain SnowMICROSCOPIC [id number] 00:00:00* Test Item Value Reference Range Interpretation Comme nts WHITE BLOOD CELLS (test code = 1513) 0-5 /HPF RED BLOOD CELLS (test code = 1514) 3-5 /HPF EPITHELIAL CELLS (test code = 05288) 0-5 /HPF BACTERIA (test code = 1515) 1+ CASTS, HYALINE (test code = 1517) NONE SEEN Cain SnowMICROSCOPIC [id number] 00:00:00* Test Item Value Reference Range Interpretation Comme nts WHITE BLOOD CELLS (test code = 1513) 0-5 /HPF RED BLOOD CELLS (test code = 1514) 3-5 /HPF EPITHELIAL CELLS (test code = 50949) 0-5 /HPF BACTERIA (test code = 1515) 1+ CASTS, HYALINE (test code = 1517) NONE SEEN Cain SnowCULTURE, [id number] 11:11:20SPECIMEN NUMBER: [id number] CULTURE, URINE SPECIMEN NUMBER: [id number] SPECIMEN COMMENT: URINE SOURCE: URINE REPORT STATUS: FINAL ISOLATE NUMBER 1: IDENTIFICATION: 11/15/2022 <10,000 CFU/ML STREPTOCOCCUS AGALACTIAE (GROUP B) ADDITIONAL OBSERVATIONS: PENICILLIN AND AMPICILLIN ARE DRUGS OF CHOICE FOR TREATMENT OF B-HEMOLYTIC STREPTOCOCCAL INFECTIONS. SUSCEPTIBILITY TESTING OF PENICILLIN AND OTHER B-LACTAMS APPROVED BY THE [place] FOOD AND DRUG ADMINISTRATION FOR TREATMENT OF B-HEMOLYTIC STREPTOCOCCA L INFECTIONS NEED NOT BE PERFORMED ROUTINELY. PRELIMINARY REPORT: 11/14/2022 INSUFFICIENT GROWTH - FURTHER REPORTS TO FOLLOW ADDITIONAL OBSERVATIONS: 11/15/2022 10-50,000 CFU/ML UROGENITAL MARYANNE PRESENT NO COMMON PATHOGENSCULTURE, [id number] 00:00:00* Test Item Value Reference Range Interpretation Comme nts CULTURE, URINE (test code = 96051) SPECIMEN NUMBER: [id number] Cain Corado AustinCULTURE, [id number] 00:00:00* Test Item Value Reference Range Interpretation Comme nts CULTURE, URINE (test code = 80587) SPECIMEN NUMBER: [id number] Cain Corado AustinCULTURE, [id number] 00:00:00* Test Item Value Reference Range Interpretation Comme nts CULTURE, URINE (test code = 67384) SPECIMEN NUMBER: [id number] Cain Corado AustinCT/NG, NAAT, [id number] 18:05:41* Test Item Value Reference Range Interpretation Comme nts CHLAMYDIA, NAAT, URINE (test code = 20461) POSITIVE NEGATIVE A Testing is perfo rmed with Tino ELVIE 6800/8800 systems usingreal-time polymerase chain reaction (PCR) method. GONORRHEA, NAAT, URINE (test code = 71664) NEGATIVE NEGATIVE Testing is perfo rmed with Tino ELVIE 6800/8800 systems usingreal-time polymerase chain reaction (PCR) method. A negative result does not exclude low level infection, specimensampling error, or collection error. TRICHOMONAS, NAAT, [id number] 15:41:34* Test Item Value Reference Range Interpretation Comme nts TRICHOMONAS, NAAT, URINE (test code = 25177) NEGATIVE NEGATIVE Testing is perfo rmed with Tino ELVIE 6800/8800 method usingreal-time polymerase chain reaction (PCR) method. A negative result does not exclude low level infection, specimensampling error, or collection error. UNLESS OTHERWISE INDICATED, ALL TESTING PERFORMED AT [facility] [address] [place] [place] [address] BURGLAR ALARM OPERATOR: ALEX GOODWIN M.D. CLIA NUMBER [id number] [place]. [id number] HERPES SIMPLEX AB, [id number] 13:03:04* Test Item Value Reference Range Interpretation [facility] HERPES SIMPLEX AB, IgM (test code = 56001) 1.40 INDEX SEE BELOW H IMPORTANT NOTE: HSV IgM ASSAYS ARE NOT TYPE-SPECIFIC. THE BIOLOGICALIgM RESPONSE WITH PRIMARY INFECTIONS IS VARIABLE AND MAY BEUNDETECTABLE; WITH RECURRENT INFECTIONS IgM MAY OR MAY NOT BEDETECTED. FALSE POSITIVE RESULTS UNRELATED TO HSV INFECTION CAN OCCURWITH HSV IgM ASSAYS. ALL RESULTS SHOULD BE REVIEWED IN CLINICALCONTEXT, AND COMPARISON TO ACUTE OR CONVALESCENT TYPE-SPECIFIC AXT3AXL HSV2 IgG ASSAYS SHOULD BE CONSIDERED. INTERPRETATION UNITS RANGE ----- ----- NEGATIVE INDEX <=0.89 EQUIVOCAL INDEX 0.90-1.09 POSITIVE INDEX >=1.10 [id number] 05:03:06* Test Item Value Reference Range Interpretation [facility] RPR RESULT (test code = 3501) NON-REACTIVE NON-REACTIVE RPR TITER (test code = 3500) NOT INDIC. TITER NOT INDIC. HERPES SIMPLEX 1/2 AB, IgG [id number] 04:29:49* Test Item Value Reference Range Interpretation [facility] HERPES SIMPLEX 1 AB, IgG (test code = 66882) 11.400 INDEX SEE BELOW H INTERPRETATION U NITS RANGE ----- ----- NON-REACTIVE INDEX <1.000 REACTIVE INDEX >=1.000 HERPES SIMPLEX 2 AB, IgG (test code = 00858) 0.084 INDEX SEE BELOW INTERPRETATION UNITS RANGE ----- ----- NON-REACTIVE INDEX <1.000 REACTIVE INDEX >=1.000 HIV 1/2 4TH GEN, RFLX [id number] 04:29:49* Test Item Value Reference Range Interpretation Comme [facility] HIV 1/2 4TH GEN, RFLX CONF ( test code = 3514) NON-REACTIVE NON-REACTIVE HEPATITIS PANEL, [id number] 04:29:49* Test Item Value Reference Range Interpretation [facility] HEPATITIS A IgM (test code = 73630) NON-REACTIVE NON-REACTIVE HEPATITIS B CORE IgM (test code = 4644) NON-REACTIVE NON-REACTIVE HEPATITIS B SURF AG (test code = 2739) NON-REACTIVE NON-REACTIVE HEPATITIS C ANTIBODY (test code = 4675) NON-REACTIVE NON-REACTIVE INTERPRETATION HEPATITIS A: (test code = 2552) (NOTE) Hepatitis A serology shows no evidence of acute hepatitis A. INTERPRETATION HEPATITIS B: (test code = 20430) (NOTE) Hepatitis B serology shows no evidence of acute hepatitis B andno indication of exposure to hepatitis B virus in the previous sg eight months. INTERPRETATION HEPATITIS C: (test code = 15937) (NOTE) Hepatitis C serology shows no evidence of exposure to hepatitisC virus at this time. It can take up to 12 months after exposure tothe hepatitis C virus for antibodies to become detectable in the blood in certain patients. HERPES SIMPLEX 1/2 [id number] 00:00:00* Test Item Value Reference Range Interpretation Comme nts HERPES SIMPLEX 1 AB, IgG (te st code = 47030) 11.400 INDEX HERPES SIMPLEX 2 AB, IgG (te st code = 22052) 0.084 INDEX Cain SnowHIV 1/2 4TH GEN, RFLX [id number] 00:00:00* Test Item Value Reference Range Interpretation Comme nts HIV 1/2 4TH GEN, RFLX CONF ( test code = 3514) NON-REACTIVE Cain SnowACUTE HEPATITIS [id number] 00:00:00* Test Item Value Reference Range Interpretation Comme nts HEPATITIS A IgM (test code = 88407) NON-REACTIVE HEPATITIS B CORE IgM (test c ode = 4644) NON-REACTIVE HEPATITIS B SURF AG (test co de = 2739) NON-REACTIVE HEPATITIS C ANTIBODY (test c ode = 4675) NON-REACTIVE INTERPRETATION HEPATITIS A: (test code = 2552) (NOTE) INTERPRETATION HEPATITIS B: (test code = 82103) (NOTE) INTERPRETATION HEPATITIS C: (test code = 68817) (NOTE) Cain SnowCT/NG, TMA, [id number] 00:00:00* Test Item Value Reference Range Interpretation Comme nts CHLAMYDIA, NAAT, URINE (test code = 76672) POSITIVE GONORRHEA, NAAT, URINE (test code = 39480) NEGATIVE Cain [id number] 00:00:00* Test Item Value Reference Range Interpretation Comme nts RPR RESULT (test code = 3501) NON-REACTIVE RPR TITER (test code = 3500) NOT INDIC. TITER Cain SnowTRICHOMONAS, URINE, [id number] 00:00:00* Test Item Value Reference Range Interpretation Comme nts TRICHOMONAS, NAAT, URINE (te st code = 26452) NEGATIVE Cain CoxPES SIMPLEX [id number] 00:00:00* Test Item Value Reference Range Interpretation Comme nts HERPES SIMPLEX AB, IgM (test code = 41606) 1.40 INDEX Cain SnowHERPES SIMPLEX 1/2 [id number] 00:00:00* Test Item Value Reference Range Interpretation Comme nts HERPES SIMPLEX 1 AB, IgG (te st code = 66258) 11.400 INDEX HERPES SIMPLEX 2 AB, IgG (te st code = 05587) 0.084 INDEX Cain SnowHIV 1/2 4TH GEN, RFLX [id number] 00:00:00* Test Item Value Reference Range Interpretation Comme nts HIV 1/2 4TH GEN, RFLX CONF ( test code = 3514) NON-REACTIVE Cain SnowACUTE HEPATITIS [id number] 00:00:00* Test Item Value Reference Range Interpretation Comme nts HEPATITIS A IgM (test code = 70047) NON-REACTIVE HEPATITIS B CORE IgM (test c ode = 4644) NON-REACTIVE HEPATITIS B SURF AG (test co de = 2739) NON-REACTIVE HEPATITIS C ANTIBODY (test c ode = 4675) NON-REACTIVE INTERPRETATION HEPATITIS A: (test code = 2552) (NOTE) INTERPRETATION HEPATITIS B: (test code = 51829) (NOTE) INTERPRETATION HEPATITIS C: (test code = 35633) (NOTE) Cain SnowCT/NG, TMA, [id number] 00:00:00* Test Item Value Reference Range Interpretation Comme nts CHLAMYDIA, NAAT, URINE (test code = 48067) POSITIVE GONORRHEA, NAAT, URINE (test code = 80351) NEGATIVE Cain [id number] 00:00:00* Test Item Value Reference Range Interpretation Comme nts RPR RESULT (test code = 3501) NON-REACTIVE RPR TITER (test code = 3500) NOT INDIC. TITER Cain SnowTRICHOMONAS, URINE, [id number] 00:00:00* Test Item Value Reference Range Interpretation Comme nts TRICHOMONAS, NAAT, URINE (te st code = 74721) NEGATIVE Cain CoxPES SIMPLEX [id number] 00:00:00* Test Item Value Reference Range Interpretation Comme nts HERPES SIMPLEX AB, IgM (test code = 67704) 1.40 INDEX Cain SnowHERPES SIMPLEX 1/2 [id number] 00:00:00* Test Item Value Reference Range Interpretation Comme nts HERPES SIMPLEX 1 AB, IgG (te st code = 30895) 11.400 INDEX HERPES SIMPLEX 2 AB, IgG (te st code = 52911) 0.084 INDEX Cain SnowHIV 1/2 4TH GEN, RFLX [id number] 00:00:00* Test Item Value Reference Range Interpretation Comme nts HIV 1/2 4TH GEN, RFLX CONF ( test code = 3514) NON-REACTIVE Cain SnowACUTE HEPATITIS [id number] 00:00:00* Test Item Value Reference Range Interpretation Comme nts HEPATITIS A IgM (test code = 54928) NON-REACTIVE HEPATITIS B CORE IgM (test c ode = 4644) NON-REACTIVE HEPATITIS B SURF AG (test co de = 2739) NON-REACTIVE HEPATITIS C ANTIBODY (test c ode = 4675) NON-REACTIVE INTERPRETATION HEPATITIS A: (test code = 2552) (NOTE) INTERPRETATION HEPATITIS B: (test code = 53668) (NOTE) INTERPRETATION HEPATITIS C: (test code = 44914) (NOTE) Cain SnowCT/NG, TMA, [id number] 00:00:00* Test Item Value Reference Range Interpretation Comme nts CHLAMYDIA, NAAT, URINE (test code = 63223) POSITIVE GONORRHEA, NAAT, URINE (test code = 89212) NEGATIVE Cain [id number] 00:00:00* Test Item Value Reference Range Interpretation Comme nts RPR RESULT (test code = 3501) NON-REACTIVE RPR TITER (test code = 3500) NOT INDIC. TITER Cain SnowTRICHOMONAS, URINE, [id number] 00:00:00* Test Item Value Reference Range Interpretation Comme nts TRICHOMONAS, NAAT, URINE (te st code = 21590) NEGATIVE Cain SnowHERPES SIMPLEX [id number] 00:00:00* Test Item Value Reference Range Interpretation Comme nts HERPES SIMPLEX AB, IgM (test code = 88171) 1.40 INDEX Cain SnowCHLAMYDIA, NAAT, [id number] 19:50:17* Test Item Value Reference Range Interpretation Comme nts CHLAMYDIA, NAAT, URINE (test code = 33995) NEGATIVE NEGATIVE Testing is perfo rmed with Tino ELVIE 6800/8800 systems usingreal-time polymerase chain reaction (PCR) method. A negative result does not exclude low level infection, specimensampling error, or collection error. GONORRHEA, NAAT, [id number] 19:50:17* Test Item Value Reference Range Interpretation Comme nts GONORRHEA, NAAT, URINE (test code = 07888) NEGATIVE NEGATIVE Testing is perfo rmed with Tino ELVIE 6800/8800 systems usingreal-time polymerase chain reaction (PCR) method. A negative result does not exclude low level infection, specimensampling error, or collection error. UNLESS OTHERWISE INDICATED, ALL TESTING PERFORMED AT [facility] [address] [place] [address] BURGLAR ALARM OPERATOR: ALEX GOODWIN M.D. CLIA NUMBER [id number] [facility] [place]. [id number] CHLAMYDIA, AMPLIFIED, [id number] 00:00:00* Test Item Value Reference Range Interpretation Comme nts CHLAMYDIA, NAAT, URINE (test code = 66479) NEGATIVE Cain Corado AustinGC, AMPLIFIED, [id number] 00:00:00* Test Item Value Reference Range Interpretation Comme nts GONORRHEA, NAAT, URINE (test code = 31126) NEGATIVE Cain Corado AustinCHLAMYDIA, AMPLIFIED, [id number] 00:00:00* Test Item Value Reference Range Interpretation Comme nts CHLAMYDIA, NAAT, URINE (test code = 58063) NEGATIVE Cain Corado AustinGC, AMPLIFIED, [id number] 00:00:00* Test Item Value Reference Range Interpretation Comme nts GONORRHEA, NAAT, URINE (test code = 89423) NEGATIVE Cain SnowCHLAMYDIA, AMPLIFIED, [id number] 00:00:00* Test Item Value Reference Range Interpretation Comme nts CHLAMYDIA, NAAT, URINE (test code = 45643) NEGATIVE Cain SnowGC, AMPLIFIED, [id number] 00:00:00* Test Item Value Reference Range Interpretation Comme nts GONORRHEA, NAAT, URINE (test code = 32265) NEGATIVE Cain Corado AustinPOCT [id number] 20:15:00* Test Item Value Reference Range Interpretation Comme nts POCT PREG (test code = 1605) Negative On board controls acceptable with C Line (test code = 3574) Yes POCT PREG LOT # (test code = 3575) POCT PREG TEST DATE ( test code = 3576) Lab Interpretation (test cod e = 16956-7) [facility] [id number] 20:15:00* Test Item Value Reference Range Interpretation Comme nts POCT PREG (test code = 1605) Negative On board controls acceptable with C Line (test code = 3574) Yes POCT PREG LOT # (test code = 3575) POCT PREG TEST DATE ( test code = 3576) Lab Interpretation (test cod e = 98818-3) [facility] [id number] 20:15:00* Test Item Value Reference Range Interpretation Comme nts POCT PREG (test code = 1605) Negative On board controls acceptable with C Line (test code = 3574) Yes POCT PREG LOT # (test code = 3575) POCT PREG TEST DATE ( test code = 3576) Lab Interpretation (test cod e = 28657-3) [facility] [id number] 20:15:00* Test Item Value Reference Range Interpretation Comme nts POCT PREG (test code = 1605) Negative On board controls acceptable with C Line (test code = 3574) Yes POCT PREG LOT # (test code = 3575) POCT PREG TEST DATE ( test code = 3576) Lab Interpretation (test cod e = 68421-5) [facility]. METABOLIC PANEL ([id number])2022-09-03 14:12:31* Test Item Value Reference Range Interpretation Comme nts NA (test code = 2308737581) 138 mmol/L 135-145 K (test code = 1804568473) 3.8 mmol/L 3.5-5.0 CL (test code = 7652451975) 106 mmol/L 98-108 CO2 TOTAL (test code = 8106510172) 27 mmol/L 23-31 AGAP (test code = 4088533784) 5 2-16 BUN (test code = 1825279514) 8 mg/dL 7-23 GLUCOSE (test code = 1802585064) 94 mg/dL 70-110 CREATININE (test code = 9747774594) 0.51 mg/dL 0.50-1.04 TOTAL BILI (test code = 2948248582) 0.3 mg/dL 0.1-1.1 CALCIUM (test code = 0122331815) 8.2 mg/dL 8.6-10.6 L T PROTEIN (test code = 3561147987) 7.2 g/dL 6.3-8.2 ALBUMIN (test code = 6827341212) 3.4 g/dL 3.5-5.0 L ALK PHOS (test code = 4381614549) 66 U/L 34-122 ALTv (test code = 1742-6) 22 U/L 5-35 AST(SGOT) (test code = 6518516237) 22 U/L 13-40 eGFR (test code = 2392308324) 140.7 mL/min/1.73m2 YIMI (test code = YIMI) Association of Glomerular Filtration Rate (GFR) and Staging of Kidney Disease* + --+ --+ ------+| GFR (mL/min/1.73 m2) ?| With Kidney Damage ?| ?Without Kidney Damage+ --------+ --------+ +| ?>90 ?| ?Stage one ?| ? Normal ?+ ---+ ---+ -------+| ?60-89 ?| ?Stage two ?| ? Decreased GFR ? + --+ --+ ------+| ?30-59 ?| ?Stage three ?| ? Stage three ? + --+ --+ ------+| ?15-29 ?| ?Stage four ? | ? Stage four ?+ ---+ ---+ -------+| ?<15 (or dialysis) ? ?| ?Stage five ? | ? Stage five ?+ ---+ ---+ -------+ *Each stage assumes the associated GFR level has been in effect for at least three months. ?Stages 1 to 5, with or without kidney disease, indicate chronic kidney disease. Notes: Determination of stages one and two (with eGFR >59mL/min/1.73 m2) requires estimation of kidney damage for at least three months as defined by structural or functional abnormalities of the kidney, manifested by either:Pathological abnormalities or Markers of kidney damage (including abnormalities in the composition of the blood or urine or abnormalities in imaging tests). Lab Interpretation (test code = 10089-9) Abnormal [facility] WITH [id number] 14:01:50* Test Item Value Reference Range Interpretation Comme nts WBC (test code = 6690-2) 5.65 See_Comment [Automated [employer]] The system which generated this result transmitted reference range: 4.30 - 11.10 10*3/?L. The reference range was not used to interpret this result as normal/abnormal. RBC (test code = 789-8) 3.44 See_Comment L [Automated [employer]] The system which generated this result transmitted reference range: 3.93 - 5.25 10*6/?L. The reference range was not used to interpret this result as normal/abnormal. HGB (test code = 718-7) 10.4 g/dL 11.6-15.0 L HCT (test code = 4544-3) 31.2 % 35.7-45.2 L MCV (test code = 787-2) 90.7 fL 80.6-95.5 MCH (test code = 785-6) 30.2 pg 25.9-32.8 MCHC (test code = 786-4) 33.3 g/dL 31.6-35.1 RDW-SD (test code = 35996-8) 44.0 fL 39.0-49.9 RDW-CV (test code = 788-0) 13.2 % 12.0-15.5 PLT (test code = 777-3) 358 See_Comment [Automated [employer]] The system which generated this result transmitted reference range: 166 - 358 10*3/?L. The reference range was not used to interpret this result as normal/abnormal. MPV (test code = 01375-1) 8.7 fL 9.5-12.9 L NRBC/100 WBC (test code = 6795577262) 0.0 See_Comment [Automated [employer] ssage] The system which generated this result transmitted reference range: 0.0 - 10.0 /100 WBCs. The reference range was not used to interpret this result as normal/abnormal. NRBC x10^3 (test code = 5698858858) See_Comment [Automated messa ge] The system which generated this result transmitted reference range: 10*3/?L. The reference range was not used to interpret this result as normal/abnormal. GRAN MAT (NEUT) % (test code = 770-8) 61.6 % IMM GRAN % (test code = 5790192038) 0.70 % LYMPH % (test code = 736-9) 26.2 % MONO % (test code = 5905-5) 10.3 % EOS % (test code = 713-8) 0.7 % BASO % (test code = 706-2) 0.5 % GRAN MAT x10^3(ANC) (test code = 3795028516) 3.48 10*3/uL 1.88-7.09 IMM GRAN x10^3 (test code = 1855194797) 0.04 10*3/uL 0.00-0.06 LYMPH x10^3 (test code = 731-0) 1.48 10*3/uL 1.32-3.29 MONO x10^3 (test code = 742-7) 0.58 10*3/uL 0.33-0.92 EOS x10^3 (test code = 711-2) 0.04 10*3/uL 0.03-0.39 BASO x10^3 (test code = 704-7) 0.03 10*3/uL 0.01-0.07 Lab Interpretation (test code = 05392-3) Abnormal [facility] WITH [id number] 04:05:37* Test Item Value Reference Range Interpretation Comme nts WBC (test code = 6690-2) 9.20 See_Comment [Automated messa ge] The system which generated this result transmitted reference range: 4.30 - 11.10 10*3/?L. The reference range was not used to interpret this result as normal/abnormal. RBC (test code = 789-8) 3.41 See_Comment L [Automated messa ge] The system which generated this result transmitted reference range: 3.93 - 5.25 10*6/?L. The reference range was not used to interpret this result as normal/abnormal. HGB (test code = 718-7) 10.1 g/dL 11.6-15.0 L HCT (test code = 4544-3) 30.8 % 35.7-45.2 L MCV (test code = 787-2) 90.3 fL 80.6-95.5 MCH (test code = 785-6) 29.6 pg 25.9-32.8 MCHC (test code = 786-4) 32.8 g/dL 31.6-35.1 RDW-SD (test code = 65112-0) 44.3 fL 39.0-49.9 RDW-CV (test code = 788-0) 13.4 % 12.0-15.5 PLT (test code = 777-3) 340 See_Comment [Automated messa ge] The system which generated this result transmitted reference range: 166 - 358 10*3/?L. The reference range was not used to interpret this result as normal/abnormal. MPV (test code = 01926-5) 8.6 fL 9.5-12.9 L NRBC/100 WBC (test code = 4879708514) 0.0 See_Comment [Automated [employer] ssage] The system which generated this result transmitted reference range: 0.0 - 10.0 /100 WBCs. The reference range was not used to interpret this result as normal/abnormal. NRBC x10^3 (test code = 7869306738) See_Comment [Automated messa ge] The system which generated this result transmitted reference range: 10*3/?L. The reference range was not used to interpret this result as normal/abnormal. GRAN MAT (NEUT) % (test code = 770-8) 71.7 % IMM GRAN % (test code = 7355368523) 0.50 % LYMPH % (test code = 736-9) 18.8 % MONO % (test code = 5905-5) 8.6 % EOS % (test code = 713-8) 0.2 % BASO % (test code = 706-2) 0.2 % GRAN MAT x10^3(ANC) (test code = 0304847170) 6.59 10*3/uL 1.88-7.09 IMM GRAN x10^3 (test code = 9267698870) 0.05 10*3/uL 0.00-0.06 LYMPH x10^3 (test code = 731-0) 1.73 10*3/uL 1.32-3.29 MONO x10^3 (test code = 742-7) 0.79 10*3/uL 0.33-0.92 EOS x10^3 (test code = 711-2) 0.03-0.39 L BASO x10^3 (test code = 704-7) 0.01-0.07 Lab Interpretation (test code = 01694-8) [facility] [id number] [facility]:00:00* Test Item Value Reference Range Interpretation Comme nts CULTURE, URINE (test code = 46278) SPECIMEN NUMBER: [id number] Cain SnowCULTURE, [id number] 00:00:00* Test Item Value Reference Range Interpretation Comme nts CULTURE, URINE (test code = 65769) SPECIMEN NUMBER: [id number] Cain SnowCULTURE, [id number] 00:00:00* Test Item Value Reference Range Interpretation Comme nts CULTURE, URINE (test code = 72896) SPECIMEN NUMBER: [id number] Cain Corado AustinHIV 1/2 4TH GEN, RFLX [id number] 00:00:00* Test Item Value Reference Range Interpretation Comme nts HIV 1/2 4TH GEN, RFLX CONF ( test code = 3514) NON-REACTIVE Cain Corado AustinCT/NG, TMA, [id number] 00:00:00* Test Item Value Reference Range Interpretation Comme nts GONORRHEA, NAAT (test code = 53178) NEGATIVE CHLAMYDIA, NAAT (test code = 22651) NEGATIVE Cain [id number] 00:00:00* Test Item Value Reference Range Interpretation Comme nts RPR RESULT (test code = 3501) NON-REACTIVE RPR TITER (test code = 3500) NOT INDIC. TITER Cain SnowACUTE HEPATITIS [id number] 00:00:00* Test Item Value Reference Range Interpretation Comme nts HEPATITIS A IgM (test code = 79393) NON-REACTIVE HEPATITIS B CORE IgM (test c ode = 4644) NON-REACTIVE HEPATITIS B SURF AG (test co de = 2739) NON-REACTIVE HEPATITIS C ANTIBODY (test c ode = 4675) NON-REACTIVE INTERPRETATION HEPATITIS A: (test code = 2552) (NOTE) INTERPRETATION HEPATITIS B: (test code = 49718) (NOTE) INTERPRETATION HEPATITIS C: (test code = 89785) (NOTE) Cain Corado AustinHIV 1/2 4TH GEN, RFLX [id number] 00:00:00* Test Item Value Reference Range Interpretation Comme nts HIV 1/2 4TH GEN, RFLX CONF ( test code = 3514) NON-REACTIVE Cain Corado AustinCT/NG, TMA, [id number] 00:00:00* Test Item Value Reference Range Interpretation Comme nts GONORRHEA, NAAT (test code = 13689) NEGATIVE CHLAMYDIA, NAAT (test code = 45275) NEGATIVE Cain [id number] 00:00:00* Test Item Value Reference Range Interpretation Comme nts RPR RESULT (test code = 3501) NON-REACTIVE RPR TITER (test code = 3500) NOT INDIC. TITER Cain SnowACUTE HEPATITIS [id number] 00:00:00* Test Item Value Reference Range Interpretation Comme nts HEPATITIS A IgM (test code = 58598) NON-REACTIVE HEPATITIS B CORE IgM (test c ode = 4644) NON-REACTIVE HEPATITIS B SURF AG (test co de = 2739) NON-REACTIVE HEPATITIS C ANTIBODY (test c ode = 4675) NON-REACTIVE INTERPRETATION HEPATITIS A: (test code = 2552) (NOTE) INTERPRETATION HEPATITIS B: (test code = 97306) (NOTE) INTERPRETATION HEPATITIS C: (test code = 57563) (NOTE) Cain Corado AustinHIV 1/2 4TH GEN, RFLX [id number] 00:00:00* Test Item Value Reference Range Interpretation Comme nts HIV 1/2 4TH GEN, RFLX CONF ( test code = 3514) NON-REACTIVE Cain Corado AustinCT/NG, TMA, [id number] 00:00:00* Test Item Value Reference Range Interpretation Comme nts GONORRHEA, NAAT (test code = 17661) NEGATIVE CHLAMYDIA, NAAT (test code = 22062) NEGATIVE Cain [id number] 00:00:00* Test Item Value Reference Range Interpretation Comme nts RPR RESULT (test code = 3501) NON-REACTIVE RPR TITER (test code = 3500) NOT INDIC. TITER Cain SnowACUTE HEPATITIS [id number] 00:00:00* Test Item Value Reference Range Interpretation Comme nts HEPATITIS A IgM (test code = 96652) NON-REACTIVE HEPATITIS B CORE IgM (test c ode = 4644) NON-REACTIVE HEPATITIS B SURF AG (test co de = 2739) NON-REACTIVE HEPATITIS C ANTIBODY (test c ode = 4675) NON-REACTIVE INTERPRETATION HEPATITIS A: (test code = 2552) (NOTE) INTERPRETATION HEPATITIS B: (test code = 77738) (NOTE) INTERPRETATION HEPATITIS C: (test code = 45087) (NOTE) Cain SnowGALV ONLY - SYPHILIS [id number] 15:45:30* Test Item Value Reference Range Interpretation Comme nts Syphilis IgG/IgM (test code = 76616-1) Non-reactive Non-reactive YIMI (test code = YIMI) Non-reactive - No serologic evidence of T. pallidum infection. Cannot exclude incubating or early syphilis. Submit a second specimen in 2-4 weeks if syphilis is clinically suspected. Equivocal - Further testing to follow. Reactive - Further testing to follow. Lab Interpretation (test code = 43327-6) Normal [facility] ONLY - SYPHILIS IGG/[id number] 15:45:30* Test Item Value Reference Range Interpretation Comme nts Syphilis IgG/IgM (test code = 53727-7) Non-reactive Non-reactive YIMI (test code = YIMI) Non-reactive - No serologic evidence of T. pallidum infection. Cannot exclude incubating or early syphilis. Submit a second specimen in 2-4 weeks if syphilis is clinically suspected. Equivocal - Further testing to follow. Reactive - Further testing to follow. Lab Interpretation (test code = 45609-3) Normal [facility] ONLY - SYPHILIS [id number] 15:45:30* Test Item Value Reference Range Interpretation Comme nts Syphilis IgG/IgM (test code = 03066-3) Non-reactive Non-reactive YIMI (test code = YIMI) Non-reactive - No serologic evidence of T. pallidum infection. Cannot exclude incubating or early syphilis. Submit a second specimen in 2-4 weeks if syphilis is clinically suspected. Equivocal - Further testing to follow. Reactive - Further testing to follow. Lab Interpretation (test code = 46769-4) Normal [facility] 1/2 AG-AB WITH [id number] 04:26:27* Test Item Value Reference Range Interpretation Comme nts HIV Semi-quantitative (test code = 34893-5) Negative Negative YIMI (test code = YIMI) Non-reactive for HIV-1 antigen and HIV-1/HIV-2 antibodies. ?No laboratory evidence of HIV infection. ?Repeat in 2-4 weeks if acute HIV infection is suspected. [facility] 1/2 AG-AB WITH [id number] 04:26:27* Test Item Value Reference Range Interpretation Comme [facility] HIV Semi-quantitative (test code = 95542-5) Negative Negative YIMI (test code = YIMI) Non-reactive for HIV-1 antigen and HIV-1/HIV-2 antibodies. ?No laboratory evidence of HIV infection. ?Repeat in 2-4 weeks if acute HIV infection is suspected. [facility] 1/2 AG-AB WITH [id number] 04:26:27* Test Item Value Reference Range Interpretation Comme [facility] HIV Semi-quantitative (test code = 86709-9) Negative Negative YIMI (test code = YIMI) Non-reactive for HIV-1 antigen and HIV-1/HIV-2 antibodies. ?No laboratory evidence of HIV infection. ?Repeat in 2-4 weeks if acute HIV infection is suspected. [facility], [id number] 14:44:15SPECIMEN NUMBER: [id number] CULTURE, URINE SPECIMEN NUMBER: [id number] SPECIMEN COMMENT: URINE SOURCE: URINE REPORT STATUS: FINAL ISOLATE NUMBER 1: ORGANISM: 12/09/2021 >100,000 CFU/ML GRAM NEGATIVEBACILLI IDENTIFICATION: 12/10/2021 PROTEUS MIRABILIS P. MIRABILIS AMOXICILLIN/CA SENSITIVE <=8/4AMPICILLIN SENSITIVE <=8CEFAZOLIN SENSITIVE <=2CEFTRIAXONE SENSITIVE <=1CIPROFLOXACIN SENSITIVE <=1LEVOFLOXACIN SENSITIVE <=2NITROFURANTOIN RESISTANT >64PIP/TAZOBAC SENSITIVE <=16TETRACYCLINE RESISTANT >8TOBRAMYCIN SENSITIVE <=4TRIMETH/SULFA SENSITIVE <=2/38 NOTE: NUMBERS DISPLAYED REPRESENT MINIMUM INHIBITORY CONCENTRATION (TAMMI) WHICH IS EXPRESSED IN MCG/ML. UNLESS OTHERWISE INDICATED, ALL TESTING PERFORMED [facility] [employer] [address] [place] [address] BURGLAR ALARM OPERATOR: CHAR MARK M.D. [facility] NUMBER [id number] [facility] [place]. [id number], [id number] 00:00:00* Test Item Value Reference Range Interpretation Comme nts CULTURE, URINE (test code = 41536) SPECIMEN NUMBER: [id number] [facility]2022-07-04 00:00:00* Test Item Value Reference Range Interpretation Comme nts CULTURE, URINE (test code = 24194) SPECIMEN NUMBER: [id number] [facility]2022-07-04 00:00:00* Test Item Value Reference Range Interpretation Comme nts CULTURE, URINE (test code = 60212) SPECIMEN NUMBER: [id number] [facility]2022-03-31 15:21:53SPECIMEN NUMBER: [id number] CULTURE, URINE SPECIMEN NUMBER: [id number] SPECIMEN COMMENT: URINE SOURCE: URINE REPORT STATUS: FINAL ISOLATE NUMBER 1: ORGANISM: 09/06/2021 >100,000 CFU/ML GRAM NEGATIVEBACILLI IDENTIFICATION: 09/07/2021 ESCHERICHIA COLI E. COLI AMOXICILLIN/CA SENSITIVE <=8/4AMPICILLIN SENSITIVE <=8CEFAZOLIN SENSITIVE <=2CEFTRIAXONE INTERMED 2CIPROFLOXACIN SENSITIVE <=1LEVOFLOXACIN SENSITIVE <=2NITROFURANTOIN SENSITIVE <=32PIP/TAZOBAC SENSITIVE &l t;=16TETRACYCLINE SENSITIVE <=4TOBRAMYCIN SENSITIVE <=4TRIMETH/SULFA SENSITIVE <=2/38 NOTE: NUMBERS DISPLAYED REPRESENT MINIMUM INHIBITORY CONCENTRATION (TAMMI) WHICH IS EXPRESSED IN MCG/ML.UNLESS OTHERWISE INDICATED, ALL TESTING PERFORMED [facility] [employer], [facility]. [address] [place] [address], [place] [address] BURGLAR ALARM OPERATOR: CHAR MARK M.D. [place] NUMBER [id number] [facility] [place]. [id number], [id number] 00:00:00* Test Item Value Reference Range Interpretation Comme nts CULTURE, URINE (test code = 27536) SPECIMEN NUMBER: [id number] Cain SnowCULTURE, [id number] 00:00:00* Test Item Value Reference Range Interpretation Comme nts CULTURE, URINE (test code = 64664) SPECIMEN NUMBER: [id number] Cain Marte, [id number] 00:00:00* Test Item Value Reference Range Interpretation Comme nts CULTURE, URINE (test code = 06380) SPECIMEN NUMBER: [id number] Cain SnowSARS-CoV-2 (COVID-19), RT-PCR/[id number] 18:36:33* Test Item Value Reference Range Interpretation Comments SARS-CoV-2 INTERPRETATION (test code = 36871) POSITIVE SEE NOTE A SARS-CoV-2 RNA DETECTEDPositive results are indicative of the presence of SARS-CoV-2 RNA;clinical correlation with patient history and other diagnosticinformation is necessary to determine patient infection status.Positive results do not rule out bacterial infection or co-infectionwith other viruses. Positive and negative predictive values oftesting are highly dependent on prevalence. SOURCE (test code = 71049) NASOPHARYNGEAL Note: Methodolog y is Tino Elvie Real-Time RT-PCR. The expected result or reference range is NEGATIVE (Not Detected). For more information regarding COVID-19 testing to include clinicalinformation, methodology detail, intended use, FDA authorization andrecommended fact sheets for patients or healthcare providers, see NewTest Announcement: SARS-CoV-2 (COVID-19) by NAAT at URL below (note,fact sheets are provided by method given in report:[email or web address] Alternatively, see downloadable PDF fact sheet at:[email or web address] om/[email or web address] UNLESS OTHERWISE INDICATED, ALL TESTING PERFORMED [facility] [address] [place] [place] [address] BURGLAR ALARM OPERATOR: CHAR MARK M.D. [place] NUMBER [id number] [facility] [place]. [id number] SARS-CoV-2 (COVID-19) by RT-PCR (HIGH RISK)2021-06-22 00:00:00* Test Item Value Reference Range Interpretation Comme nts SARS-CoV-2 INTERPRETATION (test code = 02167) POSITIVE SOURCE (test code = 74032) NASOPHARYNGEAL Cain F [id number] (COVID-19) by RT-PCR (HIGH RISK)2021-06-22 00:00:00* Test Item Value Reference Range Interpretation Comme nts SARS-CoV-2 INTERPRETATION (test code = 81472) POSITIVE SOURCE (test code = 98597) NASOPHARYNGEAL Cain F [id number] (COVID-19) by RT-PCR (HIGH RISK)2021-06-22 00:00:00* Test Item Value Reference Range Interpretation Comme nts SARS-CoV-2 INTERPRETATION (test code = 89649) POSITIVE SOURCE (test code = 37093) NASOPHARYNGEAL Cain F [id number] (COVID-19), RT-PCR/[id number] 09:36:57* Test Item Value Reference Range Interpretation Comments SARS-CoV-2 INTERPRETATION (test code = 59155) POSITIVE SEE NOTE A SARS-CoV-2 RNA DETECTEDPositive results are indicative of the presence of SARS-CoV-2 RNA;clinical correlation with patient history and other diagnosticinformation is necessary to determine patient infection status.Positive results do not rule out bacterial infection or co-infectionwith other viruses. Positive and negative predictive values oftesting are highly dependent on prevalence. SOURCE (test code = 68232) NASOPHARYNGEAL Note: Methodolog y is Tino Elvie Real-Time RT-PCR. The expected result or reference range is NEGATIVE (Not Detected). For more information regarding COVID-19 testing to include clinicalinformation, methodology detail, intended use, FDA authorization andrecommended fact sheets for patients or healthcare providers, see NewTest Announcement: SARS-CoV-2 (COVID-19) by NAAT at URL below (note,fact sheets are provided by method given in report:[email or web address]/ Alternatively, see downloadable PDF fact sheet at:[email or web address] om/[email or web address] UNLESS OTHERWISE INDICATED, ALL TESTING PERFORMED [facility] [employer] [address] [place] [address] BURGLAR ALARM OPERATOR: CHAR MARK M.D. [place] NUMBER [id number] [facility] [place] [place]. [id number] SARS-CoV-2 (COVID-19) by RT-PCR (HIGH RISK)2021-06-20 00:00:00* Test Item Value Reference Range Interpretation Comme nts SARS-CoV-2 INTERPRETATION (test code = 97837) POSITIVE SOURCE (test code = 29509) NASOPHARYNGEAL Cain Corado [id number] (COVID-19) by RT-PCR (HIGH RISK)2021-06-20 00:00:00* Test Item Value Reference Range Interpretation Comme nts SARS-CoV-2 INTERPRETATION (test code = 17429) POSITIVE SOURCE (test code = 98626) NASOPHARYNGEAL Cain Corado [id number] (COVID-19) by RT-PCR (HIGH RISK)2021-06-20 00:00:00* Test Item Value Reference Range Interpretation Comme nts SARS-CoV-2 INTERPRETATION (test code = 34865) POSITIVE SOURCE (test code = 07279) NASOPHARYNGEAL Cain SnowPOCT [id number] 13:31:00* Test Item Value Reference Range Interpretation Comme nts POCT PREG (test code = 1605) Negative On board controls acceptable with C Line (test code = 3574) Yes POCT PREG LOT # (test code = 3575) POCT PREG TEST DATE ( test code = 3576) [facility] [id number] 00:00:00* Test Item Value Reference Range Interpretation Comme nts CHOLESTEROL (test code = 2210) 199 MG/DL TRIGLYCERIDES (test code = 2232) 69 MG/DL HDL CHOLESTEROL (test code = 2220) 58 MG/DL CALC LDL CHOL (test code = 2237) 125 MG/DL RISK RATIO LDL/HDL (test cod e = 2238) 2.16 RATIO Cain SnowHEMOGLOBIN [id number] 00:00:00* Test Item Value Reference Range Interpretation Comme nts HEMOGLOBIN A1c (test code = 17865) 5.5 % Cain SnowCOMPREHENSIVE METABOLIC [id number] 00:00:00* Test Item Value Reference Range Interpretation Comme nts GLUCOSE (test code = 2217) 93 MG/DL BUN (test code = 2208) 12 MG/DL CREATININE (test code = 2214) 0.64 MG/DL eGFR AMER. (test cod e = 88850) 141 ML/MIN/1.73 eGFR NON- AMER. (test code = 77293) 121 ML/MIN/1.73 CALC BUN/CREAT (test code = 2235) 19 RATIO SODIUM (test code = 2231) 143 MEQ/L POTASSIUM (test code = 2228) 3.8 MEQ/L CHLORIDE (test code = 2215) 105 MEQ/L CARBON DIOXIDE (test code = 2206) 27 MEQ/L CALCIUM (test code = 2209) 9.7 MG/DL PROTEIN, TOTAL (test code = 2229) 7.6 G/DL ALBUMIN (test code = 2201) 4.6 G/DL CALC GLOBULIN (test code = 2240) 3.0 G/DL CALC A/G RATIO (test code = 2234) 1.5 RATIO BILIRUBIN, TOTAL (test code = 2207) 0.3 MG/DL ALKALINE PHOSPHATASE (test code = 2204) 79 U/L AST (test code = 2218) 13 U/L ALT (test code = 2219) 10 U/L Cain SnowCBC W/AUTO [id number] 00:00:00* Test Item Value Reference Range Interpretation Comme [facility] WBC (test code = 1001) 7.6 K/UL RBC (test code = 1002) 4.40 M/UL HEMOGLOBIN (test code = 1003) 13.3 G/DL HEMATOCRIT (test code = 1004) 39.4 % MCV (test code = 1005) 89.5 fL MCH (test code = 1006) 30.2 PG MCHC (test code = 1007) 33.8 G/DL RDW (test code = 1038) 12.4 % NEUTROPHILS (test code = 1008) 71.4 % LYMPHOCYTES (test code = 1010) 21.6 % MONOCYTES (test code = 1011) 5.9 % EOSINOPHILS (test code = 1012) 0.4 % BASOPHILS (test code = 1013) 0.7 % PLATELET COUNT (test code = 1015) 416 K/UL Cain SnowLIPID [id number] 00:00:00* Test Item Value Reference Range Interpretation Comme nts CHOLESTEROL (test code = 2210) 199 MG/DL TRIGLYCERIDES (test code = 2232) 69 MG/DL HDL CHOLESTEROL (test code = 2220) 58 MG/DL CALC LDL CHOL (test code = 2237) 125 MG/DL RISK RATIO LDL/HDL (test cod e = 2238) 2.16 RATIO Cain SnowHEMOGLOBIN [id number] 00:00:00* Test Item Value Reference Range Interpretation Comme nts HEMOGLOBIN A1c (test code = 05091) 5.5 % Cain SnowCOMPREHENSIVE METABOLIC [id number] 00:00:00* Test Item Value Reference Range Interpretation Comme nts GLUCOSE (test code = 2217) 93 MG/DL BUN (test code = 2208) 12 MG/DL CREATININE (test code = 2214) 0.64 MG/DL eGFR AMER. (test cod e = 19055) 141 ML/MIN/1.73 eGFR NON- AMER. (test code = 24081) 121 ML/MIN/1.73 CALC BUN/CREAT (test code = 2235) 19 RATIO SODIUM (test code = 2231) 143 MEQ/L POTASSIUM (test code = 2228) 3.8 MEQ/L CHLORIDE (test code = 2215) 105 MEQ/L CARBON DIOXIDE (test code = 2206) 27 MEQ/L CALCIUM (test code = 2209) 9.7 MG/DL PROTEIN, TOTAL (test code = 2229) 7.6 G/DL ALBUMIN (test code = 2201) 4.6 G/DL CALC GLOBULIN (test code = 2240) 3.0 G/DL CALC A/G RATIO (test code = 2234) 1.5 RATIO BILIRUBIN, TOTAL (test code = 2207) 0.3 MG/DL ALKALINE PHOSPHATASE (test code = 2204) 79 U/L AST (test code = 2218) 13 U/L ALT (test code = 2219) 10 U/L Cain SnowCBC W/AUTO [id number] 00:00:00* Test Item Value Reference Range Interpretation Comme nts WBC (test code = 1001) 7.6 K/UL RBC (test code = 1002) 4.40 M/UL HEMOGLOBIN (test code = 1003) 13.3 G/DL HEMATOCRIT (test code = 1004) 39.4 % MCV (test code = 1005) 89.5 fL MCH (test code = 1006) 30.2 PG MCHC (test code = 1007) 33.8 G/DL RDW (test code = 1038) 12.4 % NEUTROPHILS (test code = 1008) 71.4 % LYMPHOCYTES (test code = 1010) 21.6 % MONOCYTES (test code = 1011) 5.9 % EOSINOPHILS (test code = 1012) 0.4 % BASOPHILS (test code = 1013) 0.7 % PLATELET COUNT (test code = 1015) 416 K/UL Cain SnowLIPID [id number] 00:00:00* Test Item Value Reference Range Interpretation Comme nts CHOLESTEROL (test code = 2210) 199 MG/DL TRIGLYCERIDES (test code = 2232) 69 MG/DL HDL CHOLESTEROL (test code = 2220) 58 MG/DL CALC LDL CHOL (test code = 2237) 125 MG/DL RISK RATIO LDL/HDL (test cod e = 2238) 2.16 RATIO Cain SnowHEMOGLOBIN [id number] 00:00:00* Test Item Value Reference Range Interpretation Comme nts HEMOGLOBIN A1c (test code = 33798) 5.5 % Cain Corado EdyCOMPREHENSIVE METABOLIC [id number] 00:00:00* Test Item Value Reference Range Interpretation Comme nts GLUCOSE (test code = 2217) 93 MG/DL BUN (test code = 2208) 12 MG/DL CREATININE (test code = 2214) 0.64 MG/DL eGFR AMER. (test cod e = 75545) 141 ML/MIN/1.73 eGFR NON- AMER. (test code = 05395) 121 ML/MIN/1.73 CALC BUN/CREAT (test code = 2235) 19 RATIO SODIUM (test code = 2231) 143 MEQ/L POTASSIUM (test code = 2228) 3.8 MEQ/L CHLORIDE (test code = 2215) 105 MEQ/L CARBON DIOXIDE (test code = 2206) 27 MEQ/L CALCIUM (test code = 2209) 9.7 MG/DL PROTEIN, TOTAL (test code = 2229) 7.6 G/DL ALBUMIN (test code = 2201) 4.6 G/DL CALC GLOBULIN (test code = 2240) 3.0 G/DL CALC A/G RATIO (test code = 2234) 1.5 RATIO BILIRUBIN, TOTAL (test code = 2207) 0.3 MG/DL ALKALINE PHOSPHATASE (test code = 2204) 79 U/L AST (test code = 2218) 13 U/L ALT (test code = 2219) 10 U/L [facility] [id number] 00:00:00* Test Item Value Reference Range Interpretation Comme nts WBC (test code = 1001) 7.6 K/UL RBC (test code = 1002) 4.40 M/UL HEMOGLOBIN (test code = 1003) 13.3 G/DL HEMATOCRIT (test code = 1004) 39.4 % MCV (test code = 1005) 89.5 fL MCH (test code = 1006) 30.2 PG MCHC (test code = 1007) 33.8 G/DL RDW (test code = 1038) 12.4 % NEUTROPHILS (test code = 1008) 71.4 % LYMPHOCYTES (test code = 1010) 21.6 % MONOCYTES (test code = 1011) 5.9 % EOSINOPHILS (test code = 1012) 0.4 % BASOPHILS (test code = 1013) 0.7 % PLATELET COUNT (test code = 1015) 416 K/UL Cain Snow"
--- NOTE | 2024-05-20 18:29 | RAD REPORT ---
EXAMINATION: US PELVIS TRANSVAGINAL WITH DOPPLER CLINICAL INDICATION: Female 34 years old. eval for retained POC TECHNIQUE: Real-time ultrasonography of the pelvis was performed transvaginally. Color and spectral D oppler evaluation of the ovaries was performed. COMPARISON: 09/01/2022 FINDINGS: UTERUS AND CERVIX: The uterus measures 9.3 x 5.3 x 4.1 cm (cervix to fundus x AP x transverse). The u terus is normal. No masses seen The endometrium appears to contain an IUD. RIGHT OVARY: Enlarged. The right ovary measures 6.1 x 4.9 x 4.0 cm. Normal color and spectral Doppler evaluation of the right ovary.. Several rounded hypoechoic lesions in the ovary largest measuring 3.8 cm probably hemorrhagic cysts. Six-month follow-up ultrasound recommended. LEFT OVARY: Normal. The left ovary measures 3.1 x 2.2 x 2.0 cm. Normal color and spectral Doppler evaluation of the left ovary.. FREE FLUID: No free fluid. ADDITIONAL FINDINGS: IMPRESSION: IUD in the endometrial canal fundus. Several rounded lesion in the right ovary may be hemorrhagic cysts however have a somewhat solid appe arance. Recommend follow-up ultrasound in 6 months for further evaluation.
--- NOTE | 2024-05-20 20:29 | EDPHYS ---
Physician Documentation [facility] Name: Katerina Chowdhury Age: 34 yrs Sex: Female : 1990 Arrival Date: 05/20/2024 Time: 16:58 Bed IW10 Private MD: ED Physician Eugene Hill HPI: 05/20 17:50 This 34 yrs old Female presents to ER via Ambulatory with complaints of Fever. ec2 17:50 Patient arrives today for evaluation of fevers. Reports that she recently had a ec2 miscarriage under 3 weeks ago, states that she is been having some subjective fevers and chills, had is having some abdominal cramping as well as vaginal bleeding. Has not taken any medications for symptoms. Patient reports no chronic medical problems, no daily medications.. Historical: - Allergies: 17:23 No Known Allergies; ap3 - PMHx: 17:23 Seizure; ap3 - PSHx: 17:23 head; ap3 - Immunization history:: Client reports receiving the 2nd dose of the Covid vaccine. - Infectious Disease History:: Denies. - Social history:: Smoking status: Patient denies any tobacco usage or history of. ROS: 17:51 Constitutional: as per hpi ec2 Exam: 17:51 Constitutional: GEN: NAD Head: atraumatic Eyes: EOMI Ears: External ears are ec2 normal. CV: regular rate LUNGS: no respiratory distress ABD: non-distended, soft, not guarding, not rigid SKIN: no evidence of rashes MSK: no evidence of trauma Vital Signs: 17:21 BP 124 / 83; Pulse 86; Resp 18; Temp 98.8; Pulse Ox 98% on R/A; Weight 81.65 kg; Height ap3 5 ft. 2 in. ; Pain 5/10; 17:21 Body Mass Index 32.92 (81.65 kg, 157.48 cm) ap3 17:21 Pain Scale: Adult ap3 MDM: 17:23 Medical Screening Exam initiated ec2 17:51 Data reviewed: vital signs, nurses notes. ED course: Patient arrives today for ec2 evaluation of abdominal pain and fevers. Examination revealing for well-appearing nontoxic individuals otherwise in no acute distress will obtain lab work, urine studies, ultrasound. Differential diagnosis include UTI, retained proximal of conception, .. 18:23 ED course: On further discussion with patient, she indicates that she was actually ec2 never diagnosed with an active , states that she had vaginal bleeding that had clots and she is subsequently presumed that she was and had a miscarriage. There is no previous diagnosis of miscarriage or , she actually indicates that she had multiple negative test.. 18:35 ED course: Ultrasound shows hemorrhagic cysts, IUD in place, no .. ec2 20:28 ED course: Patient eloped prior to completion of services.. ec2 05/20 17:33 Order name: Transvaginal Study Probe; Complete Time: 18:35 EDMS Administered Medications: No medications were administered Disposition Summary: 05/20/24 20:29 Eloped Notes: Disposition: after being seen by provider ec2 Reason: wait time ec2 Diagnosis - Other ovarian cysts ec2 - Lower abdominal pain, unspecified ec2 Followup: ec2 - With: Private Physician - When: - Reason: Re-evaluation by your physician Signatures: Dispatcher [employer] Tran Blackman RN RN ap3 Eugene Hill MD MD ec2 Corrections: (The following items were deleted from the chart) 17:25 17:25 CBC+H.LAB.BRZ ordered. EDMS EDMS 17:25 17:25 BASIC METABOLIC PANEL+C.LAB.BRZ ordered. EDMS EDMS 17:33 17:25 Pelvis Complete+US.RAD.BRZ ordered. EDMS EDMS 18:24 18:23 QUANTITATIVE HCG+C.LAB.BRZ ordered. EDMS EDMS
--- NOTE | 2024-05-20 20:29 | ER ---
Nurse's Notes [facility] Name: Katerina Chowdhury Age: 34 yrs Sex: Female : 1990 Arrival Date: 05/20/2024 Time: 16:58 Bed IW10 Private MD: Diagnosis: Other ovarian cysts;Lower abdominal pain, unspecified Presentation: 05/20 17:21 Chief complaint: Patient states: she had a miscarriage 05/01/24 and started having ap3 fevers last week intermittently, and is supposed to have an appointment tomorrow to insure passing of all the tissue. However, patient reports intermittent cramping 10/10 on the pain scale. Coronavirus screen: At this time, the client does not indicate any symptoms associated with coronavirus-19. Ebola Screen: No symptoms or risks identified at this time. Initial Sepsis Screen: Does the patient meet any 2 criteria? No. Patient's initial sepsis screen is negative. Does the patient have a suspected source of infection? No. Patient's initial sepsis screen is negative. Risk Assessment: Do you want to hurt yourself or someone else? Patient reports no desire to harm self or others. Onset of symptoms is unknown. 17:21 Method Of Arrival: Ambulatory ap3 17:21 Acuity: NEEL 3 ap3 Triage Assessment: 17:23 General: Appears in no apparent distress. Behavior is calm, cooperative, appropriate ap3 for age, Reports chills for fever for feeling ill for fatigue for. Pain: Complains of pain in suprapubic area Pain currently is 5 out of 10 on a pain scale. at worst was 10 out of 10 on a pain scale. Pain began gradually, Is intermittent. Neuro: Level of Consciousness is awake, alert, obeys commands, Oriented to person, place, time, situation, Appropriate for age Moves all extremities. Gait is steady, Speech is normal. Cardiovascular: Patient's skin is warm and dry. Respiratory: Airway is patent Respiratory effort is even, unlabored, Respiratory pattern is regular, symmetrical. GI: Reports lower abdominal pain, cramping, nausea. Historical: - Allergies: 17:23 No Known Allergies; ap3 - PMHx: 17:23 Seizure; ap3 - PSHx: 17:23 head; ap3 - Immunization history:: Client reports receiving the 2nd dose of the Covid vaccine. - Infectious Disease History:: Denies. - Social history:: Smoking status: Patient denies any tobacco usage or history of. Screenin:24 [facility] ED Fall Risk Assessment (Adult) History of falling in the last 3 months, ap3 including since admission No falls in past 3 months (0 pts) Confusion or Disorientation No (0 pts) Intoxicated or Sedated No (0 pts) Impaired Gait No (0 pts) Mobility Assist Device Used No (0 pt) Altered Elimination No (0 pt) Score/Fall Risk Level 0 - 2 = Low Risk Oriented to surroundings, Maintained a safe environment, Educated pt \T\ family on fall prevention, incl call for assistance when getting out of bed, Assessed \T\ reinforced patient's understanding of fall precautions, Hourly rounding (assess needs \T\ fall precautionary measures) done, Used ambulatory aids as needed (educated on \T\ assisted with), Used gait belt as appropriate. Abuse screen: Denies threats or abuse. Nutritional screening: No deficits noted. Tuberculosis screening: No symptoms or risk factors identified. Vital Signs: 17:21 BP 124 / 83; Pulse 86; Resp 18; Temp 98.8; Pulse Ox 98% on R/A; Weight 81.65 kg; Height ap3 5 ft. 2 in. ; Pain 5/10; 17:21 Body Mass Index 32.92 (81.65 kg, 157.48 cm) ap3 17:21 Pain Scale: Adult ap3 ED Course: 17:01 Patient arrived in ED. ra3 17:02 Eugene Hill MD is Attending Physician. ec2 17:23 Triage completed. ap3 17:25 Arm band placed on right wrist. ap3 18:19 Transvaginal Study Probe In Process Unspecified. EDMS Administered Medications: No medications were administered Outcome: 22:02 Patient left the ED. tm6 Signatures: Dispatcher [employer] EDMS Tran Malagon RN RN ap3 Eugene Hill MD MD ec2 Makayla Boyle RN RN tm6 Susanne Huynh ra3
[2024-05-20 22:12] VITALS: BP 124/83; TEMP 98.8; O2SAT 98
== END 2024-05-20 22:02 | disposition left against medical advice (07) ==
LOC: ER 16:58
DX: N83.299 Other ovarian cyst, unspecified side (principal)
CPT/HCPCS: 76830; 99281